=== PATIENT | female | born 1935 | race Caucasian/White ===

== ENCOUNTER 2019-12-13 15:41 | Emergency (ER) | payer MEDICARE, SELFPAY ==
--- NOTE | ~2019-12-13 | XR_ITS ---
XR finger 3rd RT min 2V 12/13/2019 16:09 Indication: Status post fall downstairs. Pain and redness right third finger. Procedure: 4 views right third finger Comparison: No prior studies for comparison. Findings: There is moderate polyarticular osteoarthritis. Loose bodies in noted adjacent to the inter phalangeal joints. Osteopenia. No foreign bodies. Impression: 1: No acute fracture. 2: Moderate polyarticular osteoarthritis. Reviewed, dictated and finalized at location A. RESS STUFFER Impression: 1: No acute fracture. 2: Moderate polyarticular osteoarthritis.
[2019-12-13 15:49] VITALS: BP 137/61; PULSE 62; RESP 20; TEMP 36.5; O2SAT 99
--- NOTE | 2019-12-13 16:17 | ED.GENADULT ---
HPI - General Adult General Chief complaint: Extremity Injury, Upper Stated complaint: FALL/INJURED FINGER Time Seen by Provider: 12/13/19 16:18 Source: patient and RN notes reviewed Mode of arrival: ambulatory Limitations: no limitations History of Present Illness HPI narrative: 84-year-old female presents with complaints of RT middle (3rd) finger pain, bruising, and swelling for 1 day. No treatment. Callie says she was walking into an office building and foot gave away and she fell. Denies hitting head or loss of consciousness. Denies numbness or tingling. No weakness of finger(s). Denies fever or chills. Denies immobility. Exacerbation is movement and palpation of finger. Relieving factor is rest. Dominant hand is RIGHT HAND. Denies break in skin or drainage. Denies abdominal pain, decrease appetite, nausea, or vomiting. Some parts of this dictation were generated by voice recognition software and may contain typographical and/or grammatical inaccuracies. Related Data Home Medications Medication Instructions Recorded Confirmed Calcium 500 + D 12/13/19 Colace 12/13/19 amlodipine 5 mg PO DAILY 12/13/19 12/13/19 aspirin [Aspir-81] 81 mg PO DAILY 12/13/19 12/13/19 atorvastatin 20 mg PO DAILY 12/13/19 12/13/19 fish oil-E-fatty acid5-[id number] cap PO 12/13/19 [Flax, Fish and Borage Oil] ibuprofen 12/13/19 irbesartan [Avapro] 300 mg PO DAILY 12/13/19 12/13/19 isosorbide mononitrate 30 mg PO DAILY 12/13/19 12/13/19 levothyroxine [Levoxyl] 50 mcg PO DAILY 12/13/19 12/13/19 metformin 500 mg PO BID 12/13/19 12/13/19 tl-wx-WO-vit [id number]-mzo-coQ10 cap PO 12/13/19 [Daily Multivitamin] sertraline 50 mg PO DAILY 12/13/19 12/13/19 vitamin B complex [B tablet 12/13/19 Complex-Vitamin B12] Allergies Allergy/AdvReac Type Severity Reaction Status Date / Time No Known Allergies Allergy Verified 12/13/19 15:56 Review of Systems Review of Systems: Narrative: CONSTITUTIONAL: Denies fever, chills, sweats. EYES: Denies visual changes, redness, discharge. ENT: Denies rhinorrhea, congestion, sore throat, otalgia. CARDIOVASCULAR: Denies chest pain, palpitations, edema. RESPIRATORY: Denies dyspnea, wheezing, cough. GASTROINTESTINAL: Denies abdominal pain, nausea, vomiting, diarrhea. GENITOURINARY: Denies dysuria, hematuria, abnormal discharge. SKIN: Denies rash or itching. MUSCULOSKELETAL: Denies acute back pain or myalgia. Complains of RT middle (3rd) finger with swelling, bruising, and tenderness. NEUROLOGIC: Denies numbness or focal weakness. PSYCHIATRIC: Denies anxiety or depression. All systems reviewed & are unremarkable except as noted in HPI and below. [facility] Past Medical History Medical History (Updated 12/13/19 @ 16:37 by UNRULY Villegas) Depression Diabetes Hypercholesteremia Hypertension Hypothyroidism Surgical History Surgical History (Updated 12/13/19 @ 16:37 by UNRULY Villegas) History of bunionectomy Bilateral History of heart bypass surgery History of hysterectomy Family History Family History (Updated 12/13/19 @ 16:37 by UNRULY Villegas) Father Heart disease Social History Social History (Updated 12/13/19 @ 16:37 by UNRULY Villegas) Smoking status: Never smoker Second hand tobacco smoke exposure: No Alcohol intake: never Substance use: never Living arrangements: with family Additional living arrangements comments: Occupation/Education: retired Gender identity (if verbalized by the patient): Female Comments At time of signature, agree with nurse past medical, surgical, social, and family history. There is no relevant family history pertinent to the presenting complaint. Exam Narrative: Exam Narrative: GENERAL: This is a well-nourished, well-developed patient, in no apparent distress. HEAD: normocephalic, atraumatic. EYES: PERRL. Sclera clear/white. Vision is grossly intact. CARD[facility]OVA
== END 2019-12-13 16:36 | disposition home or self-care (01) ==
PROVIDERS: Emergency Provider Nurse Practitioner Family
DX: S63.632A Sprain of interphalangeal joint of right middle finger, initial encounter (principal); W19.XXXA Unspecified fall, initial encounter; F32.9 Major depressive disorder, single episode, unspecified; E11.9 Type 2 diabetes mellitus without complications; E78.00 Pure hypercholesterolemia, unspecified; I10 Essential (primary) hypertension; E03.9 Hypothyroidism, unspecified; Z95.1 Presence of aortocoronary bypass graft; Z79.84 Long term (current) use of oral hypoglycemic drugs
CPT/HCPCS: 29130; 73140; 99203; G0463

== ENCOUNTER 2022-09-24 14:23 | Outpatient (CLI) | payer MEDICARE, SELFPAY ==
--- NOTE | ~2022-09-24 | XR_ITS ---
EXAMINATION: XR chest 2V Exam Date/Time: 09/24/2022 14:42 VASCULAR SURGEON HISTORY: COUGH, HX OF TRIPLE BYPASS Comparison: None available. RESULT: Lines, tubes, and devices: Intact sternotomy wires. Mediastinal surgical clips.. Lungs and pleura: Senescent change and possibly emphysematous. Bibasilar atelectasis/scar. Calcified pulmonary granulomas. Cardiomediastinal silhouette: Aortic arch calcification. Other: No acute osseous or upper abdominal finding. Degenerative change in the left shoulder and spi ne. Abdominal aortic calcification. No evident aneurysm. IMPRESSION: No acute cardiopulmonary process. Reviewed, dictated and finalized at location K. ULAR SURGEON
== END 2022-09-24 14:24 | disposition home or self-care (01) ==
DX: R05.9 Cough, unspecified (principal); R06.09 Other forms of dyspnea; R09.3 Abnormal sputum
CPT/HCPCS: 71046

== ENCOUNTER 2023-02-15 11:47 | Outpatient (CLI) | payer MEDICARE, SELFPAY | END 2023-02-15 11:48 | disposition home or self-care (01) | LOC: ANHAUDIO 11:48 | PROVIDERS: Visit Provider Otolaryngology | DX: H90.3 Sensorineural hearing loss, bilateral (principal) | CPT/HCPCS: 92557; 92567 ==

== ENCOUNTER 2023-09-04 17:17 | Inpatient (IN) | payer MEDICARE, SELFPAY ==
[2023-09-04] VITALS (38 sets, daily range): BP systolic 122–237; BP diastolic 79–111; PULSE 66–84; RESP 13–22; TEMP 36.2–37.7; O2SAT 89–100; BMI 22.6; BMI 20.8
--- NOTE | ~2023-09-04 | CT_ITS ---
. EXAMINATION: CT brain wo con DATE: 09/05/2023 14:16 INDICATION: Change in neurological status TECHNIQUE: Computed tomography (CT) of the head was performed without intravenous contrast. The mA wa s adjusted according to patient size. Iterative reconstruction technique was employed. Exam dose: 60 5.33 mGy-cm total exam DLP. COMPARISON: 11/02/2015 CT brain FINDINGS: There is nonspecific diminished attenuation of the cerebral white matter, likely due to chr onic small vessel ischemic change. Prominent bilateral carotid siphon internal carotid artery calcifi cations are noted. No intracranial mass lesion or hemorrhage or cerebrovascular accident, midline shift or mass effect i s detected. No subdural or epidural hematoma is noted. The mastoid air cells and paranasal sinuses are normally developed and aerated with the exception of minimal focal soft tissue thickening of the anterior ethmoids bilaterally. Bilateral hyperostosis frontalis interna. No skull fracture or bone destruction. IMPRESSION: Cerebral atherosclerosis and chronic small vessel ischemic changes of the cerebral white matter Reviewed, dictated and finalized at Location A. Reviewed, dictated and finalized at location L. DREN'S MINISTRY DIRECTOR
--- NOTE | ~2023-09-04 | CT_ITS ---
EXAMINATION: CT brain wo con DATE: 09/08/2023 16:32 INDICATION: Altered mental state TECHNIQUE: Computed tomography (CT) of the head was performed without intravenous contrast. The mA wa s adjusted according to patient size. Iterative reconstruction technique was employed. Exam dose: 60 5.33 mGy-cm total exam DLP. COMPARISON: 09/05/2023 CT brain FINDINGS: Moderate cerebral and cerebellar volume loss consistent with patient chronological age. Cerebral atherosclerosis and chronic small vessel ischemic changes of the cerebral white matter again noted. No intracranial mass lesion or hemorrhage or recent cerebrovascular accident is evident. No midline s hift or mass effect. No subdural or epidural hematoma is detected. The orbital contents are unremarkable. Mild soft tissue thickening of the ethmoids anteriorly. The paranasal sinuses and mastoid air cells a re otherwise unremarkable. No fracture or bone destruction of the cranial vault. Bilateral hyperostosis frontalis interna, not l ikely of clinical significance. IMPRESSION: No acute intracranial finding or significant change since 09/05/2023 Reviewed, dictated and finalized at Location A. Reviewed, dictated and finalized at location B. ECTOR SALVAGE IMPRESSION: No acute intracranial finding or significant change since 09/05/20 23
--- NOTE | ~2023-09-04 | US_ITS ---
EXAMINATION: US renal BI DATE: 09/05/2023 09:46 INDICATION: Worsening kidney failure. TECHNIQUE: Multiple ultrasound grayscale images of the kidneys were obtained. COMPARISON: None. FINDINGS: The right kidney measures 9.2 x 4.4 x 4.8 cm. The left kidney measures 9.0 x 4.8 x 4.5 cm. The kidney s demonstrate normal parenchymal echogenicity. There are cysts in right kidney measuring up to 2.0 cm . There is no hydronephrosis. The bladder is normal. IMPRESSION: 1. Normal kidney sizes. No hydronephrosis. Reviewed, dictated and finalized at location A. GUIDE
[2023-09-04] MEDS: SODIUM CHLORIDE 0.9% IV 1,000 ML 999 ML IV CONT (17:46)
[2023-09-04 18:20] LABS: Basophils Percent Auto 0.3 % (0.2-1.2); Eosinophils Absolute Auto 0.1 K/mm3 (0-0.3); Hematocrit 37.5 % (37.0-47.0); Hemoglobin 12.1 g/dL (12.0-15.0); Immature Granulocyte Absolute 0.04 K/mm3 (0.00-0.031); Immature Granulocyte Percent A 0.4 % (0-0.5); Lymphocytes Absolute Auto 1.16 K/mm3 (0.9-3.2); Lymphocytes Percent Auto 12.6 % (18.3-44.2); Mean Corpuscular HGB Conc 32.3 g/dl (32-36); Mean Corpuscular Volume 93.1 fl (80-100); Mean Platelet Volume 10.2 fl (7.4-10.4); Monocytes Absolute Auto 0.6 K/mm3 (0.1-0.6); Monocytes Percent Auto 6.7 % (2.6-8.5); Neutrophils Absolute Auto 7.3 K/mm3 (1.3-6.7); Platelet Count Result 199 k/mm3 (150-375); Red Blood Count 4.03 M/mm3 (4.2-5.4); White Blood Count 9.2 K/mm3 (4.5-10.0)
[2023-09-04 18:21] LABS: Appearance Urine Clear (Clear); Bilirubin Urine Negative (Negative); Blood Urine Negative (Negative); Color Urine Yellow (Yellow); Glucose Urine UA Negative (Negative); Ketones Urine Negative (Negative); Leukocyte Esterase Ur Negative LEU/UL (Negative); Nitrate Urine Negative (Negative); Protein Urine Negative (Negative); Specific Grav Ur 1.013 (1.001-1.035); Urobilinogen Urine 0.2 mg/dL (<2.0); pH Urine 5.5 (5.0-9.0)
[2023-09-04 18:31] LABS: Alanine Aminotransferase 18 U/L (6-35); Albumin Level 4.5 g/dL (3.5-5.1); Alkaline Phosphatase 78 U/L (38-126); Anion Gap 15 mmol/L (8-16); Aspartate Amino Transferase 19 U/L (14-36); Bilirubin,Total 0.5 mg/dL (0.2-1.3); Blood Urea Nitrogen 53 mg/dL (7-17); Calcium 10.7 mg/dL (8.4-10.2); Carbon Dioxide 17 mmol/L (22-30); Chloride 102 mmol/L (98-107); Estimated CRCL calculation 13 ml/min; Estimated Glomerular Filt Rate 20; Glucose 105 mg/dL (65-110); Potassium 5.9 mmol/L (3.4-5.0); Sodium 134 mmol/L (137-145)
[2023-09-04 18:34] LABS: Add Urine Microscopic? NO
--- NOTE | 2023-09-04 18:35 | ED.GENADULT ---
HPI - General Adult General Chief complaint: Recheck/Abnormal Lab/Rx Stated complaint: abnormal labs Time Seen by Provider: 09/04/23 17:24 History of Present Illness HPI narrative: Patient is an 88-year-old female who was sent in from her facility for renal failure and hyperkalemia. Outpatient labs show troponin trending up as well as her potassium. Patient is demented and cannot provide history. She denies being in pain. No report of poor oral intake. Patient is a DNR according to paperwork Related Data Home Medications Medication Instructions Recorded Confirmed Calcium 500 + D 12/13/19 01/19/23 Colace 12/13/19 01/19/23 amlodipine 5 mg tablet 5 mg PO DAILY 12/13/19 01/19/23 aspirin 81 mg tablet,delayed 81 mg PO DAILY 12/13/19 01/19/23 release (Aspir-) atorvastatin 20 mg tablet 20 mg PO DAILY 12/13/19 01/19/23 ibuprofen 12/13/19 01/19/23 irbesartan 300 mg tablet (Avapro) 300 mg PO DAILY 12/13/19 01/19/23 isosorbide mononitrate 30 mg 30 mg PO DAILY 12/13/19 01/19/23 tablet,extended release 24 hr levothyroxine 50 mcg tablet 50 mcg PO DAILY 12/13/19 01/19/23 (Levoxyl) metformin 500 mg tablet 500 mg PO BID 12/13/19 01/19/23 [id number]-yzi-XH 200 mcg-vit K 100 cap PO 12/13/19 01/19/23 mcg-lycop 500 [id number] capsule (Daily Multivitamin) sertraline 50 mg tablet 50 mg PO DAILY 12/13/19 01/19/23 vitamin B complex (B tablet 12/13/19 01/19/23 Complex-Vitamin B12 tablet) alendronate 70 mg tablet 70 mg PO WEEKLY 01/19/23 01/19/23 biotin 5,000 mcg sublingual tablet 5,000 mcg sublingual DAILY 01/19/23 01/19/23 wheat dextrin 3 gram/3.5 gram oral 1 packet PO DAILY 01/19/23 01/19/23 powder Allergies Allergy/AdvReac Type Severity Reaction Status Date / Time No Known Allergies Allergy Verified 09/04/23 18:03 Review of Systems Review of Systems: ROS unobtainable: Yes unobtainable due to mental status [facility] Past Medical History Medical History (Updated 09/04/23 @ 18:42 by Carson Stuart MD) CAD (coronary artery disease) Dementia Depression Diabetes Hypercholesteremia Hypertension Hypothyroidism Surgical History Surgical History (Updated 12/13/19 @ 16:37 by UNRULY Villegas) History of bunionectomy Bilateral History of heart bypass surgery History of hysterectomy Family History Family History (Updated 01/19/23 @ 14:15 by Heidi Graf Megan) Father Heart disease Hypertension Cerebrovascular accident Mother Diabetes mellitus Hypertension Heart disease Sibling Diabetes mellitus Heart disease Cerebrovascular accident Social History Social History (Updated 01/19/23 @ 14:20 by JOHN Bishop) Smoking status: Never smoker Second hand tobacco smoke exposure: No Alcohol intake: never Substance use: never Lack of Transportation: No Lack of Food: Never True Current Housing: I Have Housing Concerned About Future Housing: No Difficulty Paying Gas/Electric Bills: No Difficulty Paying for Meds: No Currently Unemployed: No Education: High School Diploma/GED Difficulty w/ Childcare or Family Care: No Living arrangements: alone Additional living arrangements comments: Occupation/Education: retired Gender identity (if verbalized by the patient): Female Exam Narrative: GENERAL: Frail-appearing, thin, and in no acute distress. HEAD: Normocephalic, atraumatic. ENT: Mucous membranes moist. CHEST: Clear to auscultation. No respiratory distress. HEART: Regular rate and rhythm. Normal peripheral pulses. ABDOMEN: Soft, nontender, nondistended. EXTREMITIES: Normal range of motion. No edema. SKIN: Warm, dry, no rash. NEURO: Alert and oriented x1. PSYCH: Normal mood and affect. Course Course Emergency Course: Admit for observation. Patient given a liter of fluid will be started on a continuous drip. Elevated BUN in relation to creatinine, likely prerenal. Vital Signs Vital signs: Vital Signs
--- NOTE | 2023-09-04 18:42 | ECG_ITS ---
Measurements Intervals Many Rate: 81 P: W[place]: 0 QRS: -59 QRSD: 119 T: 35 QT: 370 QTc: 430 Interpretive Statements SINUS RHYTHM WITH SINUS ARRHYTHMIA ATRIAL PREMATURE COMPLEXES RIGHT BUNDLE BRANCH BLOCK LEFT ANTERIOR FASCICULAR BLOCK CANNOT RULE OUT SEPTAL INFARCT, AGE INDETERMINATE BASELINE ARTIFACT- I, II, III, AVR, AVF, V2 ABNORMAL ECG NO PREVIOUS ECG AVAILABLE FOR COMPARISON Electronically Signed On 09-04-2023 19:22:58 RN ORTHO by Duc Silvestre D.O.
--- NOTE | 2023-09-04 20:54 | ADMGEN ---
This patient, Callie Peñaloza, was admitted to Virtual Bed 3rd Floor-1 at 2018. Patient/family oriented to hospital policies and general routines including ID bracelet, bed and alarms, visiting hours, pain management, procedures, bathroom and other care routines, personal items, smoking policy, room service/diet, and visiting hours. Information on how to activate the Rapid Response Team has been discussed. Patient/Family are encouraged to report perceived risks to care and to ask questions if they do not understand what they are told or what they should do.
[2023-09-04] MEDS: SODIUM CHLORIDE 0.9% IV 1,000 ML 125 ML IV CONT (21:21)
--- NOTE | 2023-09-04 21:29 | PM.IMHP ---
H&P: HPI History of Present Illness Date/Time: 09/04/23 19:00 Chief Complaint: Abnormal labs. Narrative: This is a pleasant 88-year-old female with dementia, hypertension, hyperlipidemia, hypothyroidism, type 2 diabetes mellitus, chronic kidney disease, and coronary artery disease who presented to the emergency department via EMS from [place] for evaluation of abnormal labs. The patient is a poor historian due to her dementia and her son provides the majority of the following history. She typically gets her care at [facility] and there are no recent labs in our system however some paperwork did accompany the patient. It looks like she does have chronic kidney disease and her BUN and creatinine were 29 and 1.8 on labs obtained on 08/08/2023. She has had 3 subsequent lab draws since that time with increasing BUN, creatinine, and potassium levels. She was sent in today for evaluation after she was found to have a creatinine of 2.2 and a potassium of 5.8. Son believes that she has been eating and drinking though he goes on to say that at baseline she does not seem to stay as hydrated as she should. Her blood pressures have been increasingly difficult to control as of late but it does not look as though she has been started on any new medications. Labs done on arrival to the ED today were significant for sodium of 134, potassium 5.9, chloride 102, carbon dioxide 17, BUN 53, creatinine 2.30, calcium 10.7. Blood pressures have been as high as 228/101 but have improved with IV hydralazine 10 mg x 1. She received a L of normal saline in the ED and she is being admitted in this setting for close monitoring and nephrology consultation. The patient herself has no complaints and she specifically denies headache, lightheadedness, dizziness, fever, cold and flu symptoms, chest pain, shortness a breath, abdominal pain, nausea, vomiting, diarrhea, and dysuria. Review of Systems Review of Systems: Review of systems is difficult to obtain given her dementia and questionable accuracy. She has not had any recent illnesses according to the son. [facility] Past Medical History Medical History (Updated 09/04/23 @ 21:41 by Selma Jamil PA-C) Coronary artery disease Dementia Depression Hypercholesteremia Hypertension Hypothyroidism Type 2 diabetes mellitus Surgical History Surgical History (Updated 09/04/23 @ 21:41 by Selma Jamil PA-C) History of bunionectomy of both great toes History of heart bypass surgery History of hysterectomy Family History Family History Father Heart disease Hypertension Cerebrovascular accident Mother Diabetes mellitus Hypertension Heart disease Sibling Diabetes mellitus Heart disease Cerebrovascular accident Social History Social History (Updated 09/04/23 @ 21:38 by Selma Jamil PA-C) Social History: Healthcare power of attorney lawyer: Todd Raymundo Anabela CummingsNoelle, son. Code status: Do not resuscitate. Smoking status: Never smoker Second hand tobacco smoke exposure: No Alcohol intake: never Substance use: never Lack of Transportation: No Lack of Food: Never True Current Housing: I Have Housing Concerned About Future Housing: No Difficulty Paying Gas/Electric Bills: No Difficulty Paying for Meds: No Currently Unemployed: No Education: High School Diploma/GED Difficulty w/ Childcare or Family Care: No Living arrangements: group home Additional living arrangements comments: [place]. Occupation/Education: retired Spiritual care concerns: No Meds Home Medications and Allergies Home Medications Medication Instructions Recorded Confirmed Type Calcium 500 + D 12/13/19 01/19/23 History amlodipine 5 mg tablet 5 mg PO DAILY 12/13/19 01/19/23 History aspirin 81 mg tablet,delayed 81 mg PO DAILY 12/13/19 09/04/23 History release (Aspir-) atorvastatin 20 mg tablet
[2023-09-04 21:58] LABS: Glucose Point of Care 130 mg/dl (65-105)
[2023-09-04] MEDS: hydrALAZINE HCL 20 MG/ML VIAL 5 MG IV PUSH (22:08)
[2023-09-04] MEDS: SODIUM BICARBONATE 8.4% 50 MEQ/50 ML SYRINGE 58 MEQ IV PUSH (22:23)
[2023-09-04 23:01] LABS: Anion Gap 17 mmol/L (8-16); Blood Urea Nitrogen 50 mg/dL (7-17); CRP 3.2 mg/dL (<1.0); Calcium 10.2 mg/dL (8.4-10.2); Carbon Dioxide 17 mmol/L (22-30); Chloride 102 mmol/L (98-107); Estimated CRCL calculation 15 ml/min; Estimated Glomerular Filt Rate 24; Glucose 118 mg/dL (65-110); Magnesium 1.6 mg/dL (1.6-2.3); Phosphorus 3.7 mg/dL (2.5-4.5); Potassium 5.2 mmol/L (3.4-5.0); Sodium 136 mmol/L (137-145)
[2023-09-04 23:09] LABS: Creatine Kinase < 20 U/L (30-135)
[2023-09-04 23:24] LABS: Hemoglobin A1C 5.9 % (<5.7)
[2023-09-04] MEDS: ACETAMINOPHEN 325 MG TABLET 650 MG PO (23:28)
[2023-09-04 23:49] LABS: Thyroid Stimulating Hormone Reflex 0.198 uIU/mL (0.465-4.68)
[2023-09-05] VITALS (13 sets, daily range): BP systolic 140–194; BP diastolic 71–89; PULSE 65–93; RESP 16; TEMP 36.3–37.1; O2SAT 95–100
[2023-09-05 00:10] LABS: Influenza A QL RT-PCR Negative (Negative); Influenza B QL RT-PCR Negative (Negative); SARS-CoV-2 RNA PCR Negative (Negative)
[2023-09-05 00:37] LABS: Free T4 Free Thyroxine Reflex 1.79 ng/dL (0.78-2.19)
[2023-09-05] MEDS: hydrALAZINE HCL 20 MG/ML VIAL 5 MG IV PUSH ×2 (01:36→21:46)
[2023-09-05 01:55] LABS: Total Triiodothyronine (T3) 0.74 NG/ML (0.97-1.69)
--- NOTE | 2023-09-05 02:45 | PC.NURSE ---
Pt transferred to floor at 2018 on 09/04/23 along with 2 sons. Pt BP elevated while in ED. Upon arriving on floor, pt BP 188/90. Pt orientation of A&O x1-2 (baseline). Pt was states needing to urinate. Pt was assisted to restroom with GB and walker. Pt states she is having a BM, within minutes pt become unresponsive on the toilet. Pt was transferred to bed using wheelchair. Pt vitals obtained; BP 237/90, temp WNL, HR WNL, respirations WNL, O2 WNL. MD on unit and assessed the pt. Orders were placed. Prior to hydralazine was administered, pt had generalized shivering. Pt states she was cold; warm blankets applied. Temp obtained for the 4th time; temporal temp 99.9, acetaminophen administered. 30 minutes later; temp re-checked; WNL. Continued monitoring and MD are made aware of any status change. Pt stable at 0320.
[2023-09-05 07:50] LABS: Glucose Point of Care 188 mg/dl (65-105)
[2023-09-05 07:56] LABS: Hematocrit 37.7 % (37.0-47.0); Hemoglobin 12.1 g/dL (12.0-15.0); Mean Corpuscular HGB Conc 32.1 g/dl (32-36); Mean Corpuscular Volume 93.5 fl (80-100); Mean Platelet Volume 10.3 fl (7.4-10.4); Platelet Count Result 185 k/mm3 (150-375); Red Blood Count 4.03 M/mm3 (4.2-5.4); White Blood Count 7.1 K/mm3 (4.5-10.0)
[2023-09-05 08:05] LABS: Hemoglobin A1C 5.9 % (<5.7)
[2023-09-05 08:07] LABS: Anion Gap 17 mmol/L (8-16); Blood Urea Nitrogen 41 mg/dL (7-17); Calcium 10.3 mg/dL (8.4-10.2); Carbon Dioxide 19 mmol/L (22-30); Chloride 100 mmol/L (98-107); Estimated CRCL calculation 19 ml/min; Estimated Glomerular Filt Rate 30; Glucose 168 mg/dL (65-110); Potassium 4.2 mmol/L (3.4-5.0); Sodium 136 mmol/L (137-145)
[2023-09-05] MEDS: SODIUM CHLORIDE 0.9% IV 1,000 ML 75 ML IV CONT (11:21)
[2023-09-05 12:22] LABS: Glucose Point of Care 192 mg/dl (65-105)
--- NOTE | 2023-09-05 14:09 | PM.IMPN ---
Progress Note: A&P Assessment and Plan (1) Acute on chronic kidney failure: Code(s): N17.9 - Acute kidney failure, unspecified; N18.9 - Chronic kidney disease, unspecified Status: Acute Assessment and Plan: Creatinine was 1.80 will less than a month ago, 2.30 on admission and now 1.7 waiting on faxed labs from [facility] to determine her baseline kidney function BUN, EGFR improving on fluids but still at 41, 30 respectively hydralazine ordered to help keep her blood pressure under control Renal US shows no abnormalities Hold nephrotoxic agents including ibuprofen and Irbesartan Nephrology consulted (2) Alteration in neurological status: Code(s): R29.90 - Unspecified symptoms and signs involving the nervous system Status: Acute Assessment and Plan: Could be due to worsening kidney function Not at patient baseline per family CT scan of brain W/O contrast ordered, recent fall with bruising evidence EEG ordered to rule out subclinical seizures May consult neurology if appropriate (3) Hyperkalemia: Code(s): E87.5 - Hyperkalemia Status: Acute Assessment and Plan: elevated on admission, likely due to CKD 4.2 on recheck this am continue to monitor (4) Hypercalcemia: Code(s): E83.52 - Hypercalcemia Status: Resolved Assessment and Plan: resolved with fluids (5) Hypothyroidism: Code(s): E03.9 - Hypothyroidism, unspecified Status: Chronic Assessment and Plan: TSH recheck 0.198, T4 normal T3 low continue home levothyroxine (6) Type 2 diabetes mellitus: Code(s): E11.9 - Type 2 diabetes mellitus without complications Status: Chronic Assessment and Plan: sliding scale insulin, Accu-Cheks, and hypoglycemic protocol holding metformin due to kidney function Subjective Date/time seen: 09/05/23 14:09 Interval history: Patient is a 88 YO female with dementia, hypertension, hyperlipidemia, hypothyroidism, type 2 diabetes mellitus, chronic kidney disease, and coronary artery disease who presented to the emergency department via EMS from [place] for evaluation of abnormal labs. The patient is a poor historian due to her dementia and her son provides the majority of the following history. She typically gets her care at [facility] and there are no recent labs in our system however some paperwork did accompany the patient. It looks like she does have chronic kidney disease and her BUN and creatinine were 29 and 1.8 on labs obtained on 08/08/2023. She has had 3 subsequent lab draws since that time with increasing BUN, creatinine, and potassium levels. She was sent in today for evaluation after she was found to have a creatinine of 2.2 and a potassium of 5.8. Son believes that she has been eating and drinking though he goes on to say that at baseline she does not seem to stay as hydrated as she should. Her blood pressures have been increasingly difficult to control as of late but it does not look as though she has been started on any new medications. She was admitted in this setting for close monitoring and nephrology consultation. Today the patient is not verbal in response. She will open her eyes, but cannot respond to questions when asked. Her sons were at the bedside this afternoon, and discussed her DNR status. They were already looking into in home hospice for her prior to this admission. Apparently, she has had 3 hospital admission within the year and her condition subsequently worsens, but today is not her baseline neuro status. Her son said that she was normally talkative, responsive and would eat and drink with some assistance. They have many questions and called a relative who is also a physician involved in her care, who was very concerned for the decline in her neuro status being so drastic. They want to be quite involved in her plan of care. Encouraged the sons as POA to think about comfort care measu
--- NOTE | 2023-09-05 15:22 | PM.CNNEP ---
Assessment and Plan Assessment and plan (1) TIMI (acute kidney injury): Code(s): N17.9 - Acute kidney failure, unspecified Status: Acute Assessment and Plan: possibly due to volume depletion/poor oral intake in the context on ongoing ARB use improvement noted in renal function with just IVFs evaluation to date: renal ultrasound okay CPK low urine studies pending ARB on hold follow trend of repeat labs (2) Chronic kidney disease, stage IV (severe): Code(s): N18.4 - Chronic kidney disease, stage 4 (severe) Status: Chronic Assessment and Plan: baseline creatinine runs ~ 1.7 - 1.9mg/dl from [facility] records presumably due to HTN, diabetes, vascular disease, and age I wonder if her dementia and fluctuating oral intake causes her creatinine to fluctuate even higher.... (3) Hyperkalemia: Code(s): E87.5 - Hyperkalemia Status: Acute Assessment and Plan: presumably due to volume depletion + ARB therapy resolving with medical management follow trend of K+ (4) Altered mental status: Code(s): R41.82 - Altered mental status, unspecified Status: Acute Assessment and Plan: due to TIMI/ARF? rule out infection worsening of baseline dementia? follow mentation (5) Hypertension: Code(s): I10 - Essential (primary) hypertension Status: Chronic Assessment and Plan: appears difficult to control at baseline off ARB at this time using PRN IV hyralazine with her other oral medications to control follow trend of hemodynamics (6) Type 2 diabetes mellitus: Code(s): E11.9 - Type 2 diabetes mellitus without complications Status: Chronic Assessment and Plan: follow accu-cheks glycemic control per hospitalits. I will continue follow the patient with you while she remains hospitalized and make further recommendations as needed. Thank you for allowing me to participate in the care this patient. History of Present Illness Reason for Consult Consult date: 09/05/23 Reason for consult: acute renal failure (on chronic kidney disease) Chief Complaint Chief complaint: TIMI/Hyperkalemia History of Present Illness Narrative: Most information I have obtained is from review of the electronic medical record as well as discussion with the physician/ nurses involved in the patient's care as I am unable to get much history from the patient given her altered mental status. Her power of keeler polygraph operator who was at bedside during my initial evaluation was able to provide some history as well. The patient is an 88-year-old female with a past medical history as outlined below who presented to [facility] Emergency room from her nursing facility for further evaluation of abnormal labs. The patient apparently gets most of her care at [facility] so there are no recent or old labs to compare to with regard to her baseline status. From the longterm paperwork, she carries a diagnosis of chronic kidney disease with her last labs showing a creatinine of 1.8 mg/dL on August 08, 2023. further testing following that blood work shows a subsequent rise in creatinine up to as high as 2.2 with a potassium of 5.8. furthermore, she apparently has been having issues and problems with blood pressure control as well although I am unclear if any other medication just since have been done prior to her presentation. In any event, given the trend of the abnormal labs as mentioned, she was transferred to the emergency room for further assessment. Workup and evaluation in the emergency room demonstrated patient be quite hypertensive with a systolic BP greater than 200. routine blood tests once again confirmed her elevated BUN and creatinine in association with hyperkalemia with the values of 53, 2.3, and 5.8, respectively. She was given IV hydralazine for her high blood pressure as well as L of normal saline due to concerns for poss
--- NOTE | 2023-09-05 15:22 | P.CONNP_ITS ---
Assessment and Plan Assessment and plan (1) TIMI (acute kidney injury): Code(s): N17.9 - Acute kidney failure, unspecified Status: Acute Assessment and Plan: * possibly due to volume depletion/poor oral intake in the context on ongoing ARB use * improvement noted in renal function with just IVFs * evaluation to date: * renal ultrasound okay * CPK low * urine studies pending * ARB on hold * follow trend of repeat labs (2) Chronic kidney disease, stage IV (severe): Code(s): N18.4 - Chronic kidney disease, stage 4 (severe) Status: Chronic Assessment and Plan: * baseline creatinine runs ~ 1.7 - 1.9mg/dl from [facility] records * presumably due to HTN, diabetes, vascular disease, and age * I wonder if her dementia and fluctuating oral intake causes her creatinine to fluctuate even higher.... (3) Hyperkalemia: Code(s): E87.5 - Hyperkalemia Status: Acute Assessment and Plan: * presumably due to volume depletion + ARB therapy * resolving with medical management * follow trend of K+ (4) Altered mental status: Code(s): R41.82 - Altered mental status, unspecified Status: Acute Assessment and Plan: * due to TIMI/ARF? * rule out infection * worsening of baseline dementia? * follow mentation (5) Hypertension: Code(s): I10 - Essential (primary) hypertension Status: Chronic Assessment and Plan: * appears difficult to control at baseline * off ARB at this time * using PRN IV hyralazine with her other oral medications to control * follow trend of hemodynamics (6) Type 2 diabetes mellitus: Code(s): E11.9 - Type 2 diabetes mellitus without complications Status: Chronic Assessment and Plan: * follow accu-cheks * glycemic control per hospitalits. I will continue follow the patient with you while she remains hospitalized and make further recommendations as needed. Thank you for allowing me to participate in the care this patient. History of Present Illness Reason for Consult Consult date: 09/05/23 Reason for consult: acute renal failure (on chronic kidney disease) Chief Complaint Chief complaint: TIMI/Hyperkalemia History of Present Illness Narrative: Most information I have obtained is from review of the electronic medical record as well as discussion with the physician/ nurses involved in the patient's care as I am unable to get much history from the patient given her altered mental status. Her power of privacy attorney who was at bedside during my initial evaluation was able to provide some history as well. The patient is an 88-year-old female with a past medical history as outlined below who presented to [facility] Emergency room from her nursing facility for further evaluation of abnormal labs. The patient apparently gets most of her care at [facility] so there are no recent or old labs to compare to with regard to her baseline status. From the [facility] paperwork, she carries a diagnosis of chronic kidney disease with her last labs showing a creatinine of 1.8 mg/dL on August 08, 2023. further testing following that blood work shows a subsequent rise in creatinine up to as high as 2.2 with a potassium of 5.8. furthermore, she apparently has been having issues and problems with blood pressure control as well although I am unclear if any other medication just since have been done prior to her presentation. In any event, given the trend of the abnormal labs as mentioned, she was transferred to the emergency room for further assessment.
--- NOTE | 2023-09-05 15:46 | PCCCNOTE ---
On 09/05/23, the student, [Della Lombardi], provided care and completed [facility] documentation on this patient. I have reviewed the student's documentation and agree with the findings.
[2023-09-05 16:10] LABS: Glucose Point of Care 133 mg/dl (65-105)
[2023-09-06] VITALS (11 sets, daily range): BP systolic 127–195; BP diastolic 63–88; PULSE 72–87; RESP 16–20; TEMP 36.2–36.9; O2SAT 95–96
[2023-09-06 00:17] LABS: Glucose Point of Care 116 mg/dl (65-105)
[2023-09-06 05:31] LABS: Alveolar/Arterial O2 Gradient 43.7 mmHg; Base Excess ABG -2.9 mEq/l (+/-2.0); Fractional Inspired Oxygen 21 %; Oxygen Content ABG 15.7 %vol (16.0-22.0); Oxygen Saturation ABG 96.3 % (95.0-100.0); Oxyhemoglobin 94.2 % THb (90.0-100.0); PCO2 ABG 25.5 mmHg (35.0-45.0); PO2 ABG 75.5 mmHg (80.0-100.0); Total Hemoglobin 11.8 g/dL (12.0-18.0); pH ABG 7.491 (7.350-7.450)
[2023-09-06 05:32] LABS: Device ROOM AIR; Modified Allen's Test Pass; Site Drawn RIGHT RADIAL
[2023-09-06] MEDS: hydrALAZINE HCL 20 MG/ML VIAL 5 MG IV PUSH (06:08)
[2023-09-06 06:57] LABS: Hematocrit 33.3 % (37.0-47.0); Mean Corpuscular Hemoglobin 29.7 pg (26-34); Mean Platelet Volume 10.3 fl (7.4-10.4); Platelet Count Result 180 k/mm3 (150-375); White Blood Count 5.8 K/mm3 (4.5-10.0)
[2023-09-06 07:03] LABS: Anion Gap 13 mmol/L (8-16); Blood Urea Nitrogen 34 mg/dL (7-17); Calcium 9.8 mg/dL (8.4-10.2); Carbon Dioxide 18 mmol/L (22-30); Chloride 105 mmol/L (98-107); Estimated CRCL calculation 21 ml/min; Estimated Glomerular Filt Rate 35; Glucose 122 mg/dL (65-110); Potassium 3.9 mmol/L (3.4-5.0); Sodium 136 mmol/L (137-145)
[2023-09-06 08:15] LABS: Glucose Point of Care 124 mg/dl (65-105)
--- NOTE | 2023-09-06 08:50 | P.PNIM_ITS ---
Progress Note: A&P Assessment and Plan (1) Acute on chronic kidney failure: Code(s): N17.9 - Acute kidney failure, unspecified; N18.9 - Chronic kidney disease, unspecified Status: Acute Assessment and Plan: 09/05/23:(copied from chart) * Creatinine was 1.80 will less than a month ago, 2.30 on admission and now 1.7 * waiting on faxed labs from [facility] to determine her baseline kidney function * BUN, EGFR improving on fluids but still at 41, 30 respectively * hydralazine ordered to help keep her blood pressure under control * Renal US shows no abnormalities * Hold nephrotoxic agents including ibuprofen and Irbesartan * Nephrology consulted 09/06/23: * BUN 34, creatinine 1.4, EGFR 35, creatinine clearance 21, potassium 3.9, sodium level 136 * Nephrology consulted and following * Renal ultrasound showing normal kidney size, no hydronephrosis * Continue amlodipine 5 mg and Imdur 30 mg for blood pressure control * Will continue to hold irbesartan and allopurinol (2) Alteration in neurological status: Code(s): R29.90 - Unspecified symptoms and signs involving the nervous system Status: Acute Assessment and Plan: 09/05/23:(copied from chart) * Could be due to worsening kidney function * Not at patient baseline per family * CT scan of brain W/O contrast ordered, recent fall with bruising evidence * EEG ordered to rule out subclinical seizures * May consult neurology if appropriate 09/06/23: * EEG results pending * CT of the brain without contrast negative for any acute changes, showed age- related changes only * Patient is alert and oriented x3 today, interactive, following commands, EOMs intact, PERRLA, strength 5/5 in all 4 extremities, cranial nerves intact, denies any decreased sensation. * Kidney function improved today BUN 34, creatinine 1.40, estimated GFR 35, potassium 3.9, sodium 136 * Continue to monitor daily labs (3) Hyperkalemia: Code(s): E87.5 - Hyperkalemia Status: Acute Assessment and Plan: 09/05/23:(copied from chart) * elevated on admission, likely due to CKD * 4.2 on recheck this am * continue to monitor 09/06/23: * Potassium today 3.9 * Continue to monitor daily labs (4) Hypothyroidism: Code(s): E03.9 - Hypothyroidism, unspecified Status: Chronic Assessment and Plan: 09/05/23:(copied from chart) * TSH recheck 0.198, T4 normal * T3 low * continue home levothyroxine 09/06/23: * No change to current treatment plan (5) Type 2 diabetes mellitus: Code(s): E11.9 - Type 2 diabetes mellitus without complications Status: Chronic Assessment and Plan: 09/05/23:(copied from chart) * sliding scale insulin, Accu-Cheks, and hypoglycemic protocol * holding metformin due to kidney function 09/06/23: * No change to current treatment plan Time Spent With Patient Time with patient: Greater than 35 minutes Subjective Date/time seen: 09/06/23 08:50 Interval history: 09/05/23: (copied from chart) Patient is a 88 YO female with dementia, hypertension, hyperlipidemia, hypothyroidism, type 2 diabetes mellitus, chronic kidney disease, and coronary artery disease who presented to the emergency department via EMS from [facility] for evaluation of abnormal labs. The patient is a poor historian due to her dementia and her son provides the majority of the following history. She t ypically gets her care at [facility] and there are no recent labs in our system however some paperwork did accompany the patient. It looks like she does hav
--- NOTE | 2023-09-06 08:50 | PM.IMPN ---
Progress Note: A&P Assessment and Plan (1) Acute on chronic kidney failure: Code(s): N17.9 - Acute kidney failure, unspecified; N18.9 - Chronic kidney disease, unspecified Status: Acute Assessment and Plan: 09/05/23:(copied from chart) Creatinine was 1.80 will less than a month ago, 2.30 on admission and now 1.7 waiting on faxed labs from [facility] to determine her baseline kidney function BUN, EGFR improving on fluids but still at 41, 30 respectively hydralazine ordered to help keep her blood pressure under control Renal US shows no abnormalities Hold nephrotoxic agents including ibuprofen and Irbesartan Nephrology consulted 09/06/23: BUN 34, creatinine 1.4, EGFR 35, creatinine clearance 21, potassium 3.9, sodium level 136 Nephrology consulted and following Renal ultrasound showing normal kidney size, no hydronephrosis Continue amlodipine 5 mg and Imdur 30 mg for blood pressure control Will continue to hold irbesartan and allopurinol (2) Alteration in neurological status: Code(s): R29.90 - Unspecified symptoms and signs involving the nervous system Status: Acute Assessment and Plan: 09/05/23:(copied from chart) Could be due to worsening kidney function Not at patient baseline per family CT scan of brain W/O contrast ordered, recent fall with bruising evidence EEG ordered to rule out subclinical seizures May consult neurology if appropriate 09/06/23: EEG results pending CT of the brain without contrast negative for any acute changes, showed age-related changes only Patient is alert and oriented x3 today, interactive, following commands, EOMs intact, PERRLA, strength 5/5 in all 4 extremities, cranial nerves intact, denies any decreased sensation. Kidney function improved today BUN 34, creatinine 1.40, estimated GFR 35, potassium 3.9, sodium 136 Continue to monitor daily labs (3) Hyperkalemia: Code(s): E87.5 - Hyperkalemia Status: Acute Assessment and Plan: 09/05/23:(copied from chart) elevated on admission, likely due to CKD 4.2 on recheck this am continue to monitor 09/06/23: Potassium today 3.9 Continue to monitor daily labs (4) Hypothyroidism: Code(s): E03.9 - Hypothyroidism, unspecified Status: Chronic Assessment and Plan: 09/05/23:(copied from chart) TSH recheck 0.198, T4 normal T3 low continue home levothyroxine 09/06/23: No change to current treatment plan (5) Type 2 diabetes mellitus: Code(s): E11.9 - Type 2 diabetes mellitus without complications Status: Chronic Assessment and Plan: 09/05/23:(copied from chart) sliding scale insulin, Accu-Cheks, and hypoglycemic protocol holding metformin due to kidney function 09/06/23: No change to current treatment plan Time Spent With Patient Time with patient: Greater than 35 minutes Subjective Date/time seen: 09/06/23 08:50 Interval history: 09/05/23: (copied from chart) Patient is a 88 YO female with dementia, hypertension, hyperlipidemia, hypothyroidism, type 2 diabetes mellitus, chronic kidney disease, and coronary artery disease who presented to the emergency department via EMS from [place] for evaluation of abnormal labs. The patient is a poor historian due to her dementia and her son provides the majority of the following history. She typically gets her care at [facility] and there are no recent labs in our system however some paperwork did accompany the patient. It looks like she does have chronic kidney disease and her BUN and creatinine were 29 and 1.8 on labs obtained on 08/08/2023. She has had 3 subsequent lab draws since that time with increasing BUN, creatinine, and potassium levels. She was sent in today for evaluation after she was found to have a creatinine of 2.2 and a potassium of 5.8. Son believes that she has been eating and drinking though he goes on to say that at baseline she does not seem to stay as h
[2023-09-06 11:21] LABS: Glucose Point of Care 153 mg/dl (65-105)
[2023-09-06] MEDS: SODIUM CHLORIDE 0.9% IV 1,000 ML 75 ML IV CONT ×2 (12:51→20:56)
--- NOTE | 2023-09-06 14:01 | PM.PNNEP ---
Progress Note: A&P Assessment and Plan (1) TIMI (acute kidney injury): Code(s): N17.9 - Acute kidney failure, unspecified Status: Acute Assessment and Plan: possibly due to volume depletion/poor oral intake in the context on ongoing ARB use improvement noted in renal function with just IVFs evaluation to date: renal ultrasound okay CPK low urine electrolytes non-prerenal urine eosinophils negative ARB on hold follow trend of repeat labs (2) Chronic kidney disease, stage IV (severe): Code(s): N18.4 - Chronic kidney disease, stage 4 (severe) Status: Chronic Assessment and Plan: baseline creatinine runs ~ 1.7 - 1.9mg/dl from [facility] records presumably due to HTN, diabetes, vascular disease, and age I wonder if her dementia and fluctuating oral intake causes her creatinine to fluctuate even higher.... creatinine better than baseline currently (3) Hyperkalemia: Code(s): E87.5 - Hyperkalemia Status: Acute Assessment and Plan: resolved presumably due to volume depletion + ARB therapy resolving with medical management follow trend of K+ (4) Altered mental status: Code(s): R41.82 - Altered mental status, unspecified Status: Acute Assessment and Plan: improvement noted due to TIMI/ARF? rule out infection worsening of baseline dementia? follow mentation (5) Hypertension: Code(s): I10 - Essential (primary) hypertension Status: Chronic Assessment and Plan: appears difficult to control at baseline off ARB at this time using PRN IV hyralazine with her other oral medications to control follow trend of hemodynamics (6) Type 2 diabetes mellitus: Code(s): E11.9 - Type 2 diabetes mellitus without complications Status: Chronic Assessment and Plan: follow accu-cheks glycemic control per hospitalits. Will continue to follow. Subjective Date/time seen: 09/06/23 14:01 Interval history: Follow-up for TIMI/ARF on chronic kidney disease. Mentation has significantly improved and renal function appears better than baseline by AM labs; BP running a bit high but otherwise; no apparent distress noted. Exam Narrative: General: elderly female in NAD Heart: normal S1 and S2; no rub Lungs: clear to auscultation Abdomen: soft, nontender, nondistended, positive bowel sounds Extremities: no cyanosis or clubbing; no edema Skin: warm and dry Objective Data Vital Signs Vital Signs: Vital Signs Temp Pulse Resp BP Pulse Ox 09/06/23 14:00 98.5 F 78 20 151/63 H 96 09/06/23 12:00 77 09/06/23 08:00 77 09/06/23 07:00 179/75 H 09/06/23 05:59 97.1 F L 80 20 195/87 H 95 09/06/23 04:00 72 09/06/23 00:45 76 185/88 H 09/05/23 21:40 97.8 F 72 16 194/89 H 95 09/06/23 00:00 74 09/05/23 20:00 77 Intake/Output Intake/Output: Intake & Output 09/03/23 09/04/23 09/05/23 09/06/23 23:59 23:59 23:59 23:59 Intake Total 1000 2100 2600 Output Total 75 Balance 925 2100 2600 Meds/Results Medications: Active Medications Generic Name Dose Route Start Last Admin Trade Name Freq PRN Reason Stop Dose Admin Acetaminophen 650 mg 09/04/23 18:35 09/06/23 14:45 Acetaminophen 325 Mg Tablet PO 650 mg Q4H PRN Administration Mild Pain (1-3) or Fever Amlodipine Besylate 5 mg 09/06/23 14:00 09/06/23 14:02 Amlodipine Besylate 5 Mg Tablet PO 5 mg DAILY YOBANY Administration Ascorbic Acid 500 mg 09/07/23 09:00 Ascorbic Acid 500 Mg Tablet PO DAILY YOBANY Aspirin 81 mg 09/06/23 14:00 09/06/23 14:03 Aspirin 81 Mg Enteric Tablet PO 81 mg DAILY YOBANY Administration Atorvastatin Calcium 20 mg 09/06/23 14:00 09/06/23 14:03 Atorvastatin 20 Mg Tablet PO 20 mg DAILY YOBANY Administration Calcium Carbonate 500 mg 09/07/23 09:00 Calcium/Vitamin D 500 Mg Tablet PO DAILY
--- NOTE | 2023-09-06 14:01 | P.PNNP_ITS ---
Progress Note: A&P Assessment and Plan (1) TIMI (acute kidney injury): Code(s): N17.9 - Acute kidney failure, unspecified Status: Acute Assessment and Plan: * possibly due to volume depletion/poor oral intake in the context on ongoing ARB use * improvement noted in renal function with just IVFs * evaluation to date: * renal ultrasound okay * CPK low * urine electrolytes non-prerenal * urine eosinophils negative * ARB on hold * follow trend of repeat labs (2) Chronic kidney disease, stage IV (severe): Code(s): N18.4 - Chronic kidney disease, stage 4 (severe) Status: Chronic Assessment and Plan: * baseline creatinine runs ~ 1.7 - 1.9mg/dl from [facility] records * presumably due to HTN, diabetes, vascular disease, and age * I wonder if her dementia and fluctuating oral intake causes her creatinine to fluctuate even higher.... * creatinine better than baseline currently (3) Hyperkalemia: Code(s): E87.5 - Hyperkalemia Status: Acute Assessment and Plan: * resolved * presumably due to volume depletion + ARB therapy * resolving with medical management * follow trend of K+ (4) Altered mental status: Code(s): R41.82 - Altered mental status, unspecified Status: Acute Assessment and Plan: * improvement noted * due to TIMI/ARF? * rule out infection * worsening of baseline dementia? * follow mentation (5) Hypertension: Code(s): I10 - Essential (primary) hypertension Status: Chronic Assessment and Plan: * appears difficult to control at baseline * off ARB at this time * using PRN IV hyralazine with her other oral medications to control * follow trend of hemodynamics (6) Type 2 diabetes mellitus: Code(s): E11.9 - Type 2 diabetes mellitus without complications Status: Chronic Assessment and Plan: * follow accu-cheks * glycemic control per hospitalits. Will continue to follow. Subjective Date/time seen: 09/06/23 14:01 Interval history: Follow-up for TIMI/ARF on chronic kidney disease. Mentation has significantly improved and renal function appears better than baseline by AM labs; BP running a bit high but otherwise; no apparent distress noted. Exam Narrative: General: elderly female in NAD Heart: normal S1 and S2; no rub Lungs: clear to auscultation Abdomen: soft, nontender, nondistended, positive bowel sounds Extremities: no cyanosis or clubbing; no edema Skin: warm and dry Objective Data Vital Signs Vital Signs: Vital Signs Temp Pulse Resp BP Pulse Ox 09/06/23 14:00 98.5 F 78 20 151/63 H 96 09/06/23 12:00 77 09/06/23 08:00 77 09/06/23 07:00 179/75 H 09/06/23 05:59 97.1 F L 80 20 195/87 H 95 09/06/23 04:00 72 09/06/23 00:45 76 185/88 H 09/05/23 21:40 97.8 F 72 16 194/89 H 95 09/06/23 00:00 74 09/05/23 20:00 77 Intake/Output Intake/Output: Intake & Output 09/03/23 09/04/23 09/05/23 09/06/23 23:59 23:59 23:59 23:59 Intake Total 1000 2100 2600 Output Total 75 Balance 925 2100 2600 Meds/Results Medications: Active Medi
[2023-09-06] MEDS: amLODIPine BESYLATE 5 MG TABLET PO (14:02)
[2023-09-06] MEDS: ASPIRIN 81 MG ENTERIC TABLET PO (14:03)
[2023-09-06] MEDS: ISOSORBIDE MONONITRATE 30 MG TAB.ER.24H PO (14:03)
[2023-09-06] MEDS: ATORVASTATIN 20 MG TABLET PO (14:03)
[2023-09-06] MEDS: VITAMIN B COMPLEX CAPSULE 1 CAP PO (14:03)
[2023-09-06] MEDS: SERTRALINE HCL 50 MG TABLET PO (14:03)
[2023-09-06] MEDS: ACETAMINOPHEN 325 MG TABLET 650 MG PO (14:45)
--- NOTE | 2023-09-06 14:57 | PCCCNOTE ---
On 09/06/23, the student, [Della Lombardi], provided care and completed [facility] documentation on this patient. I have reviewed the student's documentation and agree with the findings.
[2023-09-06] MEDS: MEGESTROL ACETATE (*CHEMO) ORAL SUSP 40 MG/ML SYR 400 MG PO (16:21)
[2023-09-06 16:31] LABS: Glucose Point of Care 197 mg/dl (65-105)
[2023-09-06 20:43] LABS: Glucose Point of Care 131 mg/dl (65-105)
[2023-09-07] VITALS (9 sets, daily range): BP systolic 140–170; BP diastolic 66–77; PULSE 73–99; RESP 16–20; TEMP 36.7–36.9; O2SAT 98–100
[2023-09-07] MEDS: hydrALAZINE HCL 20 MG/ML VIAL 5 MG IV PUSH (03:05)
[2023-09-07] MEDS: MEGESTROL ACETATE (*CHEMO) ORAL SUSP 40 MG/ML SYR 400 MG PO ×3 (05:26→17:18)
[2023-09-07 07:38] LABS: Glucose Point of Care 127 mg/dl (65-105)
[2023-09-07 08:31] LABS: Basophils Percent Auto 0.4 % (0.2-1.2); Eosinophils Absolute Auto 0.2 K/mm3 (0-0.3); Eosinophils Percent Auto 2.2 % (0-4.4); Hematocrit 35.1 % (37.0-47.0); Hemoglobin 11.3 g/dL (12.0-15.0); Immature Granulocyte Absolute 0.03 K/mm3 (0.00-0.031); Immature Granulocyte Percent A 0.4 % (0-0.5); Lymphocytes Absolute Auto 1.18 K/mm3 (0.9-3.2); Lymphocytes Percent Auto 15.2 % (18.3-44.2); Mean Corpuscular HGB Conc 32.2 g/dl (32-36); Mean Corpuscular Hemoglobin 29.9 pg (26-34); Mean Corpuscular Volume 92.9 fl (80-100); Mean Platelet Volume 10.1 fl (7.4-10.4); Monocytes Absolute Auto 0.6 K/mm3 (0.1-0.6); Monocytes Percent Auto 8.2 % (2.6-8.5); Neutrophils Absolute Auto 5.7 K/mm3 (1.3-6.7); Neutrophils Percent Auto 73.6 % (45.5-73.1); Platelet Count Result 181 k/mm3 (150-375); Red Blood Count 3.78 M/mm3 (4.2-5.4); Red Cell Distribution Width 14.2 % (11.5-14.5); White Blood Count 7.8 K/mm3 (4.5-10.0)
[2023-09-07 08:47] LABS: Alanine Aminotransferase 29 U/L (6-35); Albumin Level 4.2 g/dL (3.5-5.1); Alkaline Phosphatase 70 U/L (38-126); Anion Gap 14 mmol/L (8-16); Aspartate Amino Transferase 28 U/L (14-36); Bilirubin,Total 0.5 mg/dL (0.2-1.3); Blood Urea Nitrogen 35 mg/dL (7-17); Calcium 9.8 mg/dL (8.4-10.2); Carbon Dioxide 17 mmol/L (22-30); Chloride 105 mmol/L (98-107); Estimated CRCL calculation 21 ml/min; Estimated Glomerular Filt Rate 33; Glucose 122 mg/dL (65-110); Potassium 3.8 mmol/L (3.4-5.0); Sodium 136 mmol/L (137-145)
--- NOTE | 2023-09-07 08:49 | P.PNIM_ITS ---
Progress Note: A&P Assessment and Plan (1) Acute on chronic kidney failure: Code(s): N17.9 - Acute kidney failure, unspecified; N18.9 - Chronic kidney disease, unspecified Status: Acute Assessment and Plan: 09/05/23:(copied from chart) * Creatinine was 1.80 will less than a month ago, 2.30 on admission and now 1.7 * waiting on faxed labs from [facility] to determine her baseline kidney function * BUN, EGFR improving on fluids but still at 41, 30 respectively * hydralazine ordered to help keep her blood pressure under control * Renal US shows no abnormalities * Hold nephrotoxic agents including ibuprofen and Irbesartan * Nephrology consulted 09/06/23: * BUN 34, creatinine 1.4, EGFR 35, creatinine clearance 21, potassium 3.9, sodium level 136 * Nephrology consulted and following * Renal ultrasound showing normal kidney size, no hydronephrosis * Continue amlodipine 5 mg and Imdur 30 mg for blood pressure control * Will continue to hold irbesartan and allopurinol 09/07/23: * BUN 35, creatinine 1.5, potassium 3.8, sodium 136, eGFR 33, creatinine clearance 21 * Nephrology feels that the dehydration coupled with her use of an Arb for blood pressure control has contributed to her acute kidney injury. Her baseline creatinine ranges between 1.8-1.9. * We will go ahead and restart her Avapro now that her creatinine is below her baseline and see how she does today * Encouraged patient to increase her intake of oral food and fluids * Will continue to hold her allopurinol for now * Nephrology following (2) Alteration in neurological status: Code(s): R29.90 - Unspecified symptoms and signs involving the nervous system Status: Acute Assessment and Plan: 09/05/23:(copied from chart) * Could be due to worsening kidney function * Not at patient baseline per family * CT scan of brain W/O contrast ordered, recent fall with bruising evidence * EEG ordered to rule out subclinical seizures * May consult neurology if appropriate 09/06/23: * EEG results pending * CT of the brain without contrast negative for any acute changes, showed age- related changes only * Patient is alert and oriented x3 today, interactive, following commands, EOMs intact, PERRLA, strength 5/5 in all 4 extremities, cranial nerves intact, denies any decreased sensation. * Kidney function improved today BUN 34, creatinine 1.40, estimated GFR 35, potassium 3.9, sodium 136 * Continue to monitor daily labs 09/07/23: * EEG results are still pending * Patient does not have any neuro deficits on exam * Will continue to monitor neuro status (3) Hyperkalemia: Code(s): E87.5 - Hyperkalemia Status: Acute Assessment and Plan: 09/05/23:(copied from chart) * elevated on admission, likely due to CKD * 4.2 on recheck this am * continue to monitor 09/06/23: * Potassium today 3.9 * Continue to monitor daily labs 09/07/23: * Potassium 3.8 today, no need to replace * Continue to monitor daily labs (4) Hypothyroidism: Code(s): E03.9 - Hypothyroidism, unspecified Status: Chronic Assessment and Plan: 09/05/23:(copied from chart) * TSH recheck 0.198, T4 normal * T3 low * continue home levothyroxine 09/06/23: * No change to current treatment plan 09/07/23: * No change to current treatment plan (5) Type 2 diabetes mellitus: Code(s): E11.9 - Type 2 diabetes mellitus without complications Status: Chronic Assessment and Plan: 09/05/23:(copied from chart) * sliding scale insulin, Accu-C
--- NOTE | 2023-09-07 08:49 | PM.IMPN ---
Progress Note: A&P Assessment and Plan (1) Acute on chronic kidney failure: Code(s): N17.9 - Acute kidney failure, unspecified; N18.9 - Chronic kidney disease, unspecified Status: Acute Assessment and Plan: 09/05/23:(copied from chart) Creatinine was 1.80 will less than a month ago, 2.30 on admission and now 1.7 waiting on faxed labs from [facility] to determine her baseline kidney function BUN, EGFR improving on fluids but still at 41, 30 respectively hydralazine ordered to help keep her blood pressure under control Renal US shows no abnormalities Hold nephrotoxic agents including ibuprofen and Irbesartan Nephrology consulted 09/06/23: BUN 34, creatinine 1.4, EGFR 35, creatinine clearance 21, potassium 3.9, sodium level 136 Nephrology consulted and following Renal ultrasound showing normal kidney size, no hydronephrosis Continue amlodipine 5 mg and Imdur 30 mg for blood pressure control Will continue to hold irbesartan and allopurinol 09/07/23: BUN 35, creatinine 1.5, potassium 3.8, sodium 136, eGFR 33, creatinine clearance 21 Nephrology feels that the dehydration coupled with her use of an Arb for blood pressure control has contributed to her acute kidney injury. Her baseline creatinine ranges between 1.8-1.9. We will go ahead and restart her Avapro now that her creatinine is below her baseline and see how she does today Encouraged patient to increase her intake of oral food and fluids Will continue to hold her allopurinol for now Nephrology following (2) Alteration in neurological status: Code(s): R29.90 - Unspecified symptoms and signs involving the nervous system Status: Acute Assessment and Plan: 09/05/23:(copied from chart) Could be due to worsening kidney function Not at patient baseline per family CT scan of brain W/O contrast ordered, recent fall with bruising evidence EEG ordered to rule out subclinical seizures May consult neurology if appropriate 09/06/23: EEG results pending CT of the brain without contrast negative for any acute changes, showed age-related changes only Patient is alert and oriented x3 today, interactive, following commands, EOMs intact, PERRLA, strength 5/5 in all 4 extremities, cranial nerves intact, denies any decreased sensation. Kidney function improved today BUN 34, creatinine 1.40, estimated GFR 35, potassium 3.9, sodium 136 Continue to monitor daily labs 09/07/23: EEG results are still pending Patient does not have any neuro deficits on exam Will continue to monitor neuro status (3) Hyperkalemia: Code(s): E87.5 - Hyperkalemia Status: Acute Assessment and Plan: 09/05/23:(copied from chart) elevated on admission, likely due to CKD 4.2 on recheck this am continue to monitor 09/06/23: Potassium today 3.9 Continue to monitor daily labs 09/07/23: Potassium 3.8 today, no need to replace Continue to monitor daily labs (4) Hypothyroidism: Code(s): E03.9 - Hypothyroidism, unspecified Status: Chronic Assessment and Plan: 09/05/23:(copied from chart) TSH recheck 0.198, T4 normal T3 low continue home levothyroxine 09/06/23: No change to current treatment plan 09/07/23: No change to current treatment plan (5) Type 2 diabetes mellitus: Code(s): E11.9 - Type 2 diabetes mellitus without complications Status: Chronic Assessment and Plan: 09/05/23:(copied from chart) sliding scale insulin, Accu-Cheks, and hypoglycemic protocol holding metformin due to kidney function 09/06/23: No change to current treatment plan 09/07/23: Blood sugars ranging 122-197 No change to current treatment plan Continue to hold metformin Time Spent With Patient Time with patient: Greater than 35 minutes Subjective Date/time seen: 09/07/23 08:49 Interval history: 09/05/23: (copied from chart) Patient is a 88 YO female with dementia, hypertension, hyperlipid
[2023-09-07] MEDS: THERAPEUTIC MULTIVITAMINS/MINERALS TAB (*BKC) 1 TABLET PO (09:11)
[2023-09-07] MEDS: ISOSORBIDE MONONITRATE 30 MG TAB.ER.24H PO (09:11)
[2023-09-07] MEDS: ATORVASTATIN 20 MG TABLET PO (09:11)
[2023-09-07] MEDS: ASPIRIN 81 MG ENTERIC TABLET PO (09:11)
[2023-09-07] MEDS: ASCORBIC ACID 500 MG TABLET PO (09:11)
[2023-09-07] MEDS: VITAMIN B COMPLEX CAPSULE 1 CAP PO (09:11)
[2023-09-07] MEDS: SERTRALINE HCL 50 MG TABLET PO (09:11)
[2023-09-07] MEDS: amLODIPine BESYLATE 5 MG TABLET PO (09:11)
[2023-09-07] MEDS: TRIAMCINOLONE ACET 0.1% CREAM 15 GM TUBE 1 APPLIC TOPICAL (09:11)
[2023-09-07 11:45] LABS: Glucose Point of Care 213 mg/dl (65-105)
[2023-09-07] MEDS: INSULIN ASPART (*BKC) 100 UNITS/ML SUB-Q (13:08)
--- NOTE | 2023-09-07 13:13 | P.PNNP_ITS ---
Progress Note: A&P Assessment and Plan (1) TIMI (acute kidney injury): Code(s): N17.9 - Acute kidney failure, unspecified Status: Acute Assessment and Plan: * possibly due to volume depletion/poor oral intake in the context on ongoing ARB use * improvement noted in renal function with just IVFs * evaluation to date: * renal ultrasound okay * CPK low * urine electrolytes non-prerenal * urine eosinophils negative * ARB on hold * follow trend of repeat labs (2) Chronic kidney disease, stage IV (severe): Code(s): N18.4 - Chronic kidney disease, stage 4 (severe) Status: Chronic Assessment and Plan: * baseline creatinine runs ~ 1.7 - 1.9mg/dl from [facility] records * presumably due to HTN, diabetes, vascular disease, and age * I wonder if her dementia and fluctuating oral intake causes her creatinine to fluctuate even higher.... * creatinine better than baseline currently (3) Hyperkalemia: Code(s): E87.5 - Hyperkalemia Status: Acute Assessment and Plan: * resolved * presumably due to volume depletion + ARB therapy * resolving with medical management * follow trend of K+ (4) Altered mental status: Code(s): R41.82 - Altered mental status, unspecified Status: Acute Assessment and Plan: * improvement noted * due to TIMI/ARF? * rule out infection * worsening of baseline dementia? * follow mentation (5) Hypertension: Code(s): I10 - Essential (primary) hypertension Status: Chronic Assessment and Plan: * appears difficult to control at baseline * off ARB at this time but not opposed to restarting * using PRN IV hyralazine with her other oral medications to control * follow trend of hemodynamics (6) Type 2 diabetes mellitus: Code(s): E11.9 - Type 2 diabetes mellitus without complications Status: Chronic Assessment and Plan: * follow accu-cheks * glycemic control per hospitalits. Will continue to follow. Subjective Date/time seen: 09/07/23 13:13 Interval history: Follow-up for acute kidney injury/acute renal failure on chronic kidney disease. Renal function as well as mentation continue to improve; BP still running a bit high but no other acute issues/complaints voiced at the time of my visit; no issues/events overnight or earlier this morning. Exam Narrative: General: elderly female in NAD Heart: normal S1 and S2; no rub Lungs: clear to auscultation Abdomen: soft, nontender, nondistended, positive bowel sounds Extremities: no cyanosis or clubbing; no edema Skin: warm and intact Objective Data Vital Signs Vital Signs: Vital Signs Temp Pulse Resp BP Pulse Ox O2 Del Method 09/07/23 13:05 98.5 F 90 20 140/68 100 09/07/23 12:00 92 Room Air 09/07/23 03:30 98.1 F 76 20 158/66 H 98 09/07/23 04:00 84 09/07/23 00:00 87 09/07/23 01:00 73 170/77 H 09/06/23 20:35 97.8 F 85 16 127/67 95 09/06/23 20:00 87 20 96 Room Air 09/06/23 20:00 87 Intake/Output Intake/Output: Intake & Output 09/04/23 09/05/23 09/06/23 09/07/23 23:59 23:59 23:59 23:59 Intake Total 1000 2100 4340 1410 Output Total 75 Balance 925
--- NOTE | 2023-09-07 13:13 | PM.PNNEP ---
Progress Note: A&P Assessment and Plan (1) TIMI (acute kidney injury): Code(s): N17.9 - Acute kidney failure, unspecified Status: Acute Assessment and Plan: possibly due to volume depletion/poor oral intake in the context on ongoing ARB use improvement noted in renal function with just IVFs evaluation to date: renal ultrasound okay CPK low urine electrolytes non-prerenal urine eosinophils negative ARB on hold follow trend of repeat labs (2) Chronic kidney disease, stage IV (severe): Code(s): N18.4 - Chronic kidney disease, stage 4 (severe) Status: Chronic Assessment and Plan: baseline creatinine runs ~ 1.7 - 1.9mg/dl from [facility] records presumably due to HTN, diabetes, vascular disease, and age I wonder if her dementia and fluctuating oral intake causes her creatinine to fluctuate even higher.... creatinine better than baseline currently (3) Hyperkalemia: Code(s): E87.5 - Hyperkalemia Status: Acute Assessment and Plan: resolved presumably due to volume depletion + ARB therapy resolving with medical management follow trend of K+ (4) Altered mental status: Code(s): R41.82 - Altered mental status, unspecified Status: Acute Assessment and Plan: improvement noted due to TIMI/ARF? rule out infection worsening of baseline dementia? follow mentation (5) Hypertension: Code(s): I10 - Essential (primary) hypertension Status: Chronic Assessment and Plan: appears difficult to control at baseline off ARB at this time but not opposed to restarting using PRN IV hyralazine with her other oral medications to control follow trend of hemodynamics (6) Type 2 diabetes mellitus: Code(s): E11.9 - Type 2 diabetes mellitus without complications Status: Chronic Assessment and Plan: follow accu-cheks glycemic control per hospitalits. Will continue to follow. Subjective Date/time seen: 09/07/23 13:13 Interval history: Follow-up for acute kidney injury/acute renal failure on chronic kidney disease. Renal function as well as mentation continue to improve; BP still running a bit high but no other acute issues/complaints voiced at the time of my visit; no issues/events overnight or earlier this morning. Exam Narrative: General: elderly female in NAD Heart: normal S1 and S2; no rub Lungs: clear to auscultation Abdomen: soft, nontender, nondistended, positive bowel sounds Extremities: no cyanosis or clubbing; no edema Skin: warm and intact Objective Data Vital Signs Vital Signs: Vital Signs Temp Pulse Resp BP Pulse Ox O2 Del Method 09/07/23 13:05 98.5 F 90 20 140/68 100 09/07/23 12:00 92 Room Air 09/07/23 03:30 98.1 F 76 20 158/66 H 98 09/07/23 04:00 84 09/07/23 00:00 87 09/07/23 01:00 73 170/77 H 09/06/23 20:35 97.8 F 85 16 127/67 95 09/06/23 20:00 87 20 96 Room Air 09/06/23 20:00 87 Intake/Output Intake/Output: Intake & Output 09/04/23 09/05/23 09/06/23 09/07/23 23:59 23:59 23:59 23:59 Intake Total 1000 2100 4340 1410 Output Total 75 Balance 925 2100 4340 1410 Meds/Results Medications: Active Medications Generic Name Dose Route Start Last Admin Trade Name Freq PRN Reason Stop Dose Admin Acetaminophen 650 mg 09/04/23 18:35 09/07/23 15:02 Acetaminophen 325 Mg Tablet PO 650 mg Q4H PRN Administration Mild Pain (1-3) or Fever Amlodipine Besylate 5 mg 09/06/23 14:00 09/07/23 09:11 Amlodipine Besylate 5 Mg Tablet PO 5 mg DAILY YOBANY Administration Ascorbic Acid 500 mg 09/07/23 09:00 09/07/23 09:11 Ascorbic Acid 500 Mg Tablet PO 500 mg DAILY YOBANY Administration Aspirin 81 mg 09/06/23 14:00 09/07/23 09:11 Aspirin 81 Mg Enteric Tablet PO 81 mg DAILY YOBANY Administration Atorvastatin Calcium 20 mg 09/06/23 14:00 09/07/23 09:11
--- NOTE | 2023-09-07 14:27 | WPDNEUROLOGY ---
Neurology EEG Report General Information Date of Study: 09/06/23 TEST eeg DIAGNOSIS Change in ne EEG NUMBER [id number] CLINICAL HISTORY patient was brought into the hospital for altered mental status and was noted to have continuous head and eye movements throughout the tracing. EEG DESCRIPTION Background rhythm consists of low to medium voltage 5 to 7 hertz per 2nd theta activity admixed with multiple movement artifacts. Bilateral symmetrical sleep activity seen during sleep with a mixture of beta theta activity and subsequently bilateral symmetrical sleep spindles but again admixed with multiple movement artifacts. Hyperventilation not done. Photic stimulation not done. Non paroxysmal. Nonfocal. Nonlateralizing. IMPRESSION Abnormal record due to the presence of bihemispheric slow activity without any evidence of paroxysmal activity. This abnormality suggestive of organic or metabolic encephalopathy or postictal state. Clinical correlation recommended. There is no evidence of any seizure-like discharges throughout the tracing.
[2023-09-07] MEDS: LEVOTHYROXINE SODIUM 50 MCG TABLET PO (15:02)
[2023-09-07] MEDS: ACETAMINOPHEN 325 MG TABLET 650 MG PO (15:02)
[2023-09-07 16:28] LABS: Glucose Point of Care 150 mg/dl (65-105)
[2023-09-07 21:23] LABS: Glucose Point of Care 153 mg/dl (65-105)
[2023-09-08] VITALS (10 sets, daily range): BP systolic 132–180; BP diastolic 62–80; PULSE 78–94; RESP 16–20; TEMP 36.2–36.4; O2SAT 97–99
[2023-09-08] MEDS: MEGESTROL ACETATE (*CHEMO) ORAL SUSP 40 MG/ML SYR 400 MG PO ×3 (05:26→17:26)
[2023-09-08] MEDS: ACETAMINOPHEN 325 MG TABLET 650 MG PO ×2 (05:27→09:09)
[2023-09-08] MEDS: LEVOTHYROXINE SODIUM 50 MCG TABLET PO (05:27)
[2023-09-08 06:15] LABS: Creatinine Urine 21.3 mg/dL; Total Protein Urine Random 26 mg/dL; Ur Ttl Prot Creatinine Ratio 1.22 mg/mg (0-0.20); Urea Random Urine 328 MG/DL
[2023-09-08 06:16] LABS: Sodium Urine Random 110 meq/L
[2023-09-08 06:42] LABS: Eosinophil Urine None Seen % (None Seen)
[2023-09-08 06:49] LABS: Urine Eos QC 2nd Tech Confirmed
--- NOTE | 2023-09-08 07:23 | P.PNIM_ITS ---
Progress Note: A&P Assessment and Plan (1) Acute on chronic kidney failure: Code(s): N17.9 - Acute kidney failure, unspecified; N18.9 - Chronic kidney disease, unspecified Status: Acute Assessment and Plan: 09/05/23:(copied from chart) * Creatinine was 1.80 will less than a month ago, 2.30 on admission and now 1.7 * waiting on faxed labs from [facility] to determine her baseline kidney function * BUN, EGFR improving on fluids but still at 41, 30 respectively * hydralazine ordered to help keep her blood pressure under control * Renal US shows no abnormalities * Hold nephrotoxic agents including ibuprofen and Irbesartan * Nephrology consulted 09/06/23: * BUN 34, creatinine 1.4, EGFR 35, creatinine clearance 21, potassium 3.9, sodium level 136 * Nephrology consulted and following * Renal ultrasound showing normal kidney size, no hydronephrosis * Continue amlodipine 5 mg and Imdur 30 mg for blood pressure control * Will continue to hold irbesartan and allopurinol 09/07/23: * BUN 35, creatinine 1.5, potassium 3.8, sodium 136, eGFR 33, creatinine clearance 21 * Nephrology feels that the dehydration coupled with her use of an Arb for blood pressure control has contributed to her acute kidney injury. Her baseline creatinine ranges between 1.8-1.9. * We will go ahead and restart her Avapro now that her creatinine is below her baseline and see how she does today * Encouraged patient to increase her intake of oral food and fluids * Will continue to hold her allopurinol for now * Nephrology following 09/08/23: * For BUN 30, creatinine 1.3, potassium 4.0, sodium 136, bicarb 18 * Nephrology following * I restarted her Avapro and her allopurinol (2) Alteration in neurological status: Code(s): R29.90 - Unspecified symptoms and signs involving the nervous system Status: Acute Assessment and Plan: 09/05/23:(copied from chart) * Could be due to worsening kidney function * Not at patient baseline per family * CT scan of brain W/O contrast ordered, recent fall with bruising evidence * EEG ordered to rule out subclinical seizures * May consult neurology if appropriate 09/06/23: * EEG results pending * CT of the brain without contrast negative for any acute changes, showed age- related changes only * Patient is alert and oriented x3 today, interactive, following commands, EOMs intact, PERRLA, strength 5/5 in all 4 extremities, cranial nerves intact, denies any decreased sensation. * Kidney function improved today BUN 34, creatinine 1.40, estimated GFR 35, potassium 3.9, sodium 136 * Continue to monitor daily labs 09/07/23: * EEG results are still pending * Patient does not have any neuro deficits on exam * Will continue to monitor neuro status 09/08/23: * EEG showing abnormal record due to the presence of thigh hemispheric slow activity without any evidence of paroxysmal activity, this abnormality suggestive of organic her metabolic encephalopathy or postictal state, there is no evidence of any seizure-like discharges throughout the tracing * Patient awakes to voice but then falls right back to sleep, she is not following commands today or holding a conversation which is a change from yesterday. I do not see any facial droop and her pupils are round and reactive to light. Nursing states that she has been like this the entire morning and only perked up when her son was he in the room. * We will go ahead and repeat her CT scan of her head today * Neurology consulted for further assistance, will appreciate their input. * Continue to monitor neuro status (3) Hyperkalemia:
--- NOTE | 2023-09-08 07:23 | PM.IMPN ---
Progress Note: A&P Assessment and Plan (1) Acute on chronic kidney failure: Code(s): N17.9 - Acute kidney failure, unspecified; N18.9 - Chronic kidney disease, unspecified Status: Acute Assessment and Plan: 09/05/23:(copied from chart) Creatinine was 1.80 will less than a month ago, 2.30 on admission and now 1.7 waiting on faxed labs from [facility] to determine her baseline kidney function BUN, EGFR improving on fluids but still at 41, 30 respectively hydralazine ordered to help keep her blood pressure under control Renal US shows no abnormalities Hold nephrotoxic agents including ibuprofen and Irbesartan Nephrology consulted 09/06/23: BUN 34, creatinine 1.4, EGFR 35, creatinine clearance 21, potassium 3.9, sodium level 136 Nephrology consulted and following Renal ultrasound showing normal kidney size, no hydronephrosis Continue amlodipine 5 mg and Imdur 30 mg for blood pressure control Will continue to hold irbesartan and allopurinol 09/07/23: BUN 35, creatinine 1.5, potassium 3.8, sodium 136, eGFR 33, creatinine clearance 21 Nephrology feels that the dehydration coupled with her use of an Arb for blood pressure control has contributed to her acute kidney injury. Her baseline creatinine ranges between 1.8-1.9. We will go ahead and restart her Avapro now that her creatinine is below her baseline and see how she does today Encouraged patient to increase her intake of oral food and fluids Will continue to hold her allopurinol for now Nephrology following 09/08/23: For BUN 30, creatinine 1.3, potassium 4.0, sodium 136, bicarb 18 Nephrology following I restarted her Avapro and her allopurinol (2) Alteration in neurological status: Code(s): R29.90 - Unspecified symptoms and signs involving the nervous system Status: Acute Assessment and Plan: 09/05/23:(copied from chart) Could be due to worsening kidney function Not at patient baseline per family CT scan of brain W/O contrast ordered, recent fall with bruising evidence EEG ordered to rule out subclinical seizures May consult neurology if appropriate 09/06/23: EEG results pending CT of the brain without contrast negative for any acute changes, showed age-related changes only Patient is alert and oriented x3 today, interactive, following commands, EOMs intact, PERRLA, strength 5/5 in all 4 extremities, cranial nerves intact, denies any decreased sensation. Kidney function improved today BUN 34, creatinine 1.40, estimated GFR 35, potassium 3.9, sodium 136 Continue to monitor daily labs 09/07/23: EEG results are still pending Patient does not have any neuro deficits on exam Will continue to monitor neuro status 09/08/23: EEG showing abnormal record due to the presence of thigh hemispheric slow activity without any evidence of paroxysmal activity, this abnormality suggestive of organic her metabolic encephalopathy or postictal state, there is no evidence of any seizure-like discharges throughout the tracing Patient awakes to voice but then falls right back to sleep, she is not following commands today or holding a conversation which is a change from yesterday. I do not see any facial droop and her pupils are round and reactive to light. Nursing states that she has been like this the entire morning and only perked up when her son was he in the room. We will go ahead and repeat her CT scan of her head today Neurology consulted for further assistance, will appreciate their input. Continue to monitor neuro status (3) Hyperkalemia: Code(s): E87.5 - Hyperkalemia Status: Acute Assessment and Plan: 09/05/23:(copied from chart) elevated on admission, likely due to CKD 4.2 on recheck this am continue to monitor 09/06/23: Potassium today 3.9 Continue to monitor daily labs 09/07/23: Potassium 3.8 today, no need to replace Continue to monitor daily labs 09/08/23: Potassium 4.0, no need to
[2023-09-08 07:24] LABS: Alanine Aminotransferase 29 U/L (6-35); Albumin Level 4.1 g/dL (3.5-5.1); Alkaline Phosphatase 70 U/L (38-126); Anion Gap 12 mmol/L (8-16); Aspartate Amino Transferase 30 U/L (14-36); Bilirubin,Total 0.6 mg/dL (0.2-1.3); Blood Urea Nitrogen 30 mg/dL (7-17); Calcium 9.6 mg/dL (8.4-10.2); Carbon Dioxide 18 mmol/L (22-30); Chloride 106 mmol/L (98-107); Estimated CRCL calculation 24 ml/min; Estimated Glomerular Filt Rate 39; Glucose 140 mg/dL (65-110); Sodium 136 mmol/L (137-145)
[2023-09-08 07:34] LABS: Hematocrit 34.1 % (37.0-47.0); Hemoglobin 10.9 g/dL (12.0-15.0); Mean Corpuscular Hemoglobin 29.6 pg (26-34); Mean Corpuscular Volume 92.7 fl (80-100); Mean Platelet Volume 10.6 fl (7.4-10.4); Platelet Count Result 201 k/mm3 (150-375); Red Blood Count 3.68 M/mm3 (4.2-5.4); White Blood Count 7.3 K/mm3 (4.5-10.0)
[2023-09-08 07:46] LABS: Glucose Point of Care 130 mg/dl (65-105)
[2023-09-08] MEDS: ASPIRIN 81 MG ENTERIC TABLET PO (09:09)
[2023-09-08] MEDS: IRBESARTAN 150 MG TABLET 300 MG PO (09:09)
[2023-09-08] MEDS: ISOSORBIDE MONONITRATE 30 MG TAB.ER.24H PO (09:09)
[2023-09-08] MEDS: ASCORBIC ACID 500 MG TABLET PO (09:09)
[2023-09-08] MEDS: THERAPEUTIC MULTIVITAMINS/MINERALS TAB (*BKC) 1 TABLET PO (09:09)
[2023-09-08] MEDS: ATORVASTATIN 20 MG TABLET PO (09:10)
[2023-09-08] MEDS: amLODIPine BESYLATE 5 MG TABLET PO (09:10)
[2023-09-08] MEDS: SERTRALINE HCL 50 MG TABLET PO (09:16)
[2023-09-08] MEDS: VITAMIN B COMPLEX CAPSULE 1 CAP PO (09:16)
--- NOTE | 2023-09-08 11:11 | PM.PNNEP ---
Progress Note: A&P Assessment and Plan (1) TIMI (acute kidney injury): Code(s): N17.9 - Acute kidney failure, unspecified Status: Acute Assessment and Plan: improvement noted possibly due to volume depletion/poor oral intake in the context on ongoing ARB use improvement noted in renal function with just IVFs evaluation to date: renal ultrasound okay CPK low urine electrolytes non-prerenal urine eosinophils negative follow trend of repeat labs (2) Chronic kidney disease, stage IV (severe): Code(s): N18.4 - Chronic kidney disease, stage 4 (severe) Status: Chronic Assessment and Plan: baseline creatinine runs ~ 1.7 - 1.9mg/dl from [facility] records presumably due to HTN, diabetes, vascular disease, and age I wonder if her dementia and fluctuating oral intake causes her creatinine to fluctuate even higher.... creatinine better than baseline currently (3) Hyperkalemia: Code(s): E87.5 - Hyperkalemia Status: Acute Assessment and Plan: resolved presumably due to volume depletion + ARB therapy resolving with medical management follow trend of K+ (4) Altered mental status: Code(s): R41.82 - Altered mental status, unspecified Status: Acute Assessment and Plan: a bit of a decline in the last 24 hours worsening of baseline dementia? repeat head CT today Neurology following follow mentation (5) Hypertension: Code(s): I10 - Essential (primary) hypertension Status: Chronic Assessment and Plan: appears difficult to control at baseline back on ARB therapy using PRN IV hyralazine with her other oral medications to control follow trend of hemodynamics (6) Type 2 diabetes mellitus: Code(s): E11.9 - Type 2 diabetes mellitus without complications Status: Chronic Assessment and Plan: follow accu-cheks glycemic control per hospitalits. Will continue to follow. Subjective Date/time seen: 09/08/23 11:11 Interval history: Follow-up for acute kidney injury/acute renal failure on chronic kidney disease. Renal function remains stable if not better but her mentation seems to have deteriorated in the last 24 hours; she is not as awake or conversive as yesterday which seems to be have been noted since earlier this morning; no other acute issues/events to report. Exam Narrative: General: elderly female in NAD; more lethargic Heart: normal S1 and S2; no rub Lungs: clear to auscultation Abdomen: soft, nontender, nondistended, positive bowel sounds Extremities: no cyanosis or clubbing; no edema Skin: no rash Objective Data Vital Signs Vital Signs: Vital Signs Temp Pulse Resp BP Pulse Ox O2 Del Method 09/08/23 11:00 97.1 F L 87 16 159/71 H 97 09/08/23 09:00 Room Air 09/08/23 06:00 97.3 F L 78 20 180/80 H 99 09/08/23 04:00 94 09/08/23 00:00 81 09/07/23 20:45 98.2 F 82 16 157/73 H 99 09/07/23 20:00 98 20 100 Room Air 09/07/23 20:00 99 Intake/Output Intake/Output: Intake & Output 09/05/23 09/06/23 09/07/23 09/08/23 23:59 23:59 23:59 23:59 Intake Total 2100 4340 1890 340 Output Total 2024 Balance 2100 4340 1890 -1685 Meds/Results Medications: Active Medications Generic Name Dose Route Start Last Admin Trade Name Freq PRN Reason Stop Dose Admin Acetaminophen 650 mg 09/04/23 18:35 09/08/23 09:09 Acetaminophen 325 Mg Tablet PO 650 mg Q4H PRN Administration Mild Pain (1-3) or Fever Allopurinol 100 mg 09/09/23 09:00 Allopurinol 100 Mg Tablet PO DAILY [facility] Amlodipine Besylate 5 mg 09/06/23 14:00 09/08/23 09:10 Amlodipine Besylate 5 Mg Tablet PO 5 mg DAILY [facility] Administration Ascorbic Acid 500 mg 09/07/23 09:00 09/08/23 09:09 Ascorbic Acid 500 Mg Tablet PO 500 mg DAILY [facility] Administration Aspirin 81 mg 09/06/23 14:00 09/08/23 09:09 Asp
--- NOTE | 2023-09-08 11:11 | P.PNNP_ITS ---
Progress Note: A&P Assessment and Plan (1) TIMI (acute kidney injury): Code(s): N17.9 - Acute kidney failure, unspecified Status: Acute Assessment and Plan: * improvement noted * possibly due to volume depletion/poor oral intake in the context on ongoing ARB use * improvement noted in renal function with just IVFs * evaluation to date: * renal ultrasound okay * CPK low * urine electrolytes non-prerenal * urine eosinophils negative * follow trend of repeat labs (2) Chronic kidney disease, stage IV (severe): Code(s): N18.4 - Chronic kidney disease, stage 4 (severe) Status: Chronic Assessment and Plan: * baseline creatinine runs ~ 1.7 - 1.9mg/dl from [facility] records * presumably due to HTN, diabetes, vascular disease, and age * I wonder if her dementia and fluctuating oral intake causes her creatinine to fluctuate even higher.... * creatinine better than baseline currently (3) Hyperkalemia: Code(s): E87.5 - Hyperkalemia Status: Acute Assessment and Plan: * resolved * presumably due to volume depletion + ARB therapy * resolving with medical management * follow trend of K+ (4) Altered mental status: Code(s): R41.82 - Altered mental status, unspecified Status: Acute Assessment and Plan: * a bit of a decline in the last 24 hours * worsening of baseline dementia? * repeat head CT today * Neurology following * follow mentation (5) Hypertension: Code(s): I10 - Essential (primary) hypertension Status: Chronic Assessment and Plan: * appears difficult to control at baseline * back on ARB therapy * using PRN IV hyralazine with her other oral medications to control * follow trend of hemodynamics (6) Type 2 diabetes mellitus: Code(s): E11.9 - Type 2 diabetes mellitus without complications Status: Chronic Assessment and Plan: * follow accu-cheks * glycemic control per hospitalits. Will continue to follow. Subjective Date/time seen: 09/08/23 11:11 Interval history: Follow-up for acute kidney injury/acute renal failure on chronic kidney disease. Renal function remains stable if not better but her mentation seems to have deteriorated in the last 24 hours; she is not as awake or conversive as yesterday which seems to be have been noted since earlier this morning; no other acute issues/events to report. Exam Narrative: General: elderly female in NAD; more lethargic Heart: normal S1 and S2; no rub Lungs: clear to auscultation Abdomen: soft, nontender, nondistended, positive bowel sounds Extremities: no cyanosis or clubbing; no edema Skin: no rash Objective Data Vital Signs Vital Signs: Vital Signs Temp Pulse Resp BP Pulse Ox O2 Del Method 09/08/23 11:00 97.1 F L 87 16 159/71 H 97 09/08/23 09:00 Room Air 09/08/23 06:00 97.3 F L 78 20 180/80 H 99 09/08/23 04:00 94 09/08/23 00:00 81 09/07/23 20:45 98.2 F 82 16 157/73 H 99 09/07/23 20:00 98 20 100 Room Air 09/07/23 20:00 99 Intake/Output Intake/Output: Intake & Output 09/05/23 09/06/23 09/07/23 09/08/23 23:59 23:59 23:59 23:59 Intake Total 2100 4340 1890 340 Output Total 2
[2023-09-08 11:13] LABS: Glucose Point of Care 124 mg/dl (65-105)
[2023-09-08 16:48] LABS: Glucose Point of Care 126 mg/dl (65-105)
[2023-09-08] MEDS: hydrALAZINE 5 MG TABLET PO ×2 (17:26→21:16)
[2023-09-08 23:50] LABS: Glucose Point of Care 129 mg/dl (65-105)
[2023-09-09] VITALS (8 sets, daily range): BP systolic 123–161; BP diastolic 54–79; PULSE 76–87; RESP 16–18; TEMP 36.1–36.6; O2SAT 97
[2023-09-09] MEDS: LEVOTHYROXINE SODIUM 50 MCG TABLET PO (05:49)
[2023-09-09] MEDS: MEGESTROL ACETATE (*CHEMO) ORAL SUSP 40 MG/ML SYR 400 MG PO ×3 (05:49→16:59)
[2023-09-09 07:25] LABS: Hematocrit 30.1 % (37.0-47.0); Mean Corpuscular HGB Conc 33.2 g/dl (32-36); Mean Corpuscular Hemoglobin 29.7 pg (26-34); Mean Corpuscular Volume 89.3 fl (80-100); Platelet Count Result 206 k/mm3 (150-375); Red Blood Count 3.37 M/mm3 (4.2-5.4); Red Cell Distribution Width 13.8 % (11.5-14.5); White Blood Count 6.1 K/mm3 (4.5-10.0)
[2023-09-09 07:36] LABS: Alanine Aminotransferase 25 U/L (6-35); Albumin Level 3.6 g/dL (3.5-5.1); Alkaline Phosphatase 68 U/L (38-126); Anion Gap 11 mmol/L (8-16); Aspartate Amino Transferase 25 U/L (14-36); Bilirubin,Total 0.5 mg/dL (0.2-1.3); Blood Urea Nitrogen 27 mg/dL (7-17); Calcium 9.7 mg/dL (8.4-10.2); Carbon Dioxide 18 mmol/L (22-30); Chloride 106 mmol/L (98-107); Estimated CRCL calculation 22 ml/min; Estimated Glomerular Filt Rate 35; Glucose 119 mg/dL (65-110); Potassium 4.1 mmol/L (3.4-5.0); Sodium 135 mmol/L (137-145)
[2023-09-09 07:40] LABS: Glucose Point of Care 107 mg/dl (65-105)
--- NOTE | 2023-09-09 10:01 | P.PNIM_ITS ---
Progress Note: A&P Assessment and Plan (1) Acute on chronic kidney failure: Code(s): N17.9 - Acute kidney failure, unspecified; N18.9 - Chronic kidney disease, unspecified Status: Acute Assessment and Plan: 09/05/23:(copied from chart) * Creatinine was 1.80 will less than a month ago, 2.30 on admission and now 1.7 * waiting on faxed labs from [facility] to determine her baseline kidney function * BUN, EGFR improving on fluids but still at 41, 30 respectively * hydralazine ordered to help keep her blood pressure under control * Renal US shows no abnormalities * Hold nephrotoxic agents including ibuprofen and Irbesartan * Nephrology consulted 09/06/23: * BUN 34, creatinine 1.4, EGFR 35, creatinine clearance 21, potassium 3.9, sodium level 136 * Nephrology consulted and following * Renal ultrasound showing normal kidney size, no hydronephrosis * Continue amlodipine 5 mg and Imdur 30 mg for blood pressure control * Will continue to hold irbesartan and allopurinol 09/07/23: * BUN 35, creatinine 1.5, potassium 3.8, sodium 136, eGFR 33, creatinine clearance 21 * Nephrology feels that the dehydration coupled with her use of an Arb for blood pressure control has contributed to her acute kidney injury. Her baseline creatinine ranges between 1.8-1.9. * We will go ahead and restart her Avapro now that her creatinine is below her baseline and see how she does today * Encouraged patient to increase her intake of oral food and fluids * Will continue to hold her allopurinol for now * Nephrology following 09/08/23: * For BUN 30, creatinine 1.3, potassium 4.0, sodium 136, bicarb 18 * Nephrology following * I restarted her Avapro and her allopurinol 09/09/23: * BUN 27, Creatinine 1.40, potassium 4.1, Na= 135, Bicarb 18 * Nephrology following * No change to current treatment plan (2) Alteration in neurological status: Code(s): R29.90 - Unspecified symptoms and signs involving the nervous system Status: Acute Assessment and Plan: 09/05/23:(copied from chart) * Could be due to worsening kidney function * Not at patient baseline per family * CT scan of brain W/O contrast ordered, recent fall with bruising evidence * EEG ordered to rule out subclinical seizures * May consult neurology if appropriate 09/06/23: * EEG results pending * CT of the brain without contrast negative for any acute changes, showed age- related changes only * Patient is alert and oriented x3 today, interactive, following commands, EOMs intact, PERRLA, strength 5/5 in all 4 extremities, cranial nerves intact, denies any decreased sensation. * Kidney function improved today BUN 34, creatinine 1.40, estimated GFR 35, potassium 3.9, sodium 136 * Continue to monitor daily labs 09/07/23: * EEG results are still pending * Patient does not have any neuro deficits on exam * Will continue to monitor neuro status 09/08/23: * EEG showing abnormal record due to the presence of thigh hemispheric slow activity without any evidence of paroxysmal activity, this abnormality suggestive of organic her metabolic encephalopathy or postictal state, there is no evidence of any seizure-like discharges throughout the tracing * Patient awakes to voice but then falls right back to sleep, she is not following commands today or holding a conversation which is a change from yesterday. I do not see any facial droop and her pupils are round and reactive to light. Nursing states that she has been like this the entire morning and only perked up when her son was he in the room. * We will go ahead and repeat her CT scan of her head today
--- NOTE | 2023-09-09 10:01 | PM.IMPN ---
Progress Note: A&P Assessment and Plan (1) Acute on chronic kidney failure: Code(s): N17.9 - Acute kidney failure, unspecified; N18.9 - Chronic kidney disease, unspecified Status: Acute Assessment and Plan: 09/05/23:(copied from chart) Creatinine was 1.80 will less than a month ago, 2.30 on admission and now 1.7 waiting on faxed labs from [facility] to determine her baseline kidney function BUN, EGFR improving on fluids but still at 41, 30 respectively hydralazine ordered to help keep her blood pressure under control Renal US shows no abnormalities Hold nephrotoxic agents including ibuprofen and Irbesartan Nephrology consulted 09/06/23: BUN 34, creatinine 1.4, EGFR 35, creatinine clearance 21, potassium 3.9, sodium level 136 Nephrology consulted and following Renal ultrasound showing normal kidney size, no hydronephrosis Continue amlodipine 5 mg and Imdur 30 mg for blood pressure control Will continue to hold irbesartan and allopurinol 09/07/23: BUN 35, creatinine 1.5, potassium 3.8, sodium 136, eGFR 33, creatinine clearance 21 Nephrology feels that the dehydration coupled with her use of an Arb for blood pressure control has contributed to her acute kidney injury. Her baseline creatinine ranges between 1.8-1.9. We will go ahead and restart her Avapro now that her creatinine is below her baseline and see how she does today Encouraged patient to increase her intake of oral food and fluids Will continue to hold her allopurinol for now Nephrology following 09/08/23: For BUN 30, creatinine 1.3, potassium 4.0, sodium 136, bicarb 18 Nephrology following I restarted her Avapro and her allopurinol 09/09/23: BUN 27, Creatinine 1.40, potassium 4.1, Na= 135, Bicarb 18 Nephrology following No change to current treatment plan (2) Alteration in neurological status: Code(s): R29.90 - Unspecified symptoms and signs involving the nervous system Status: Acute Assessment and Plan: 09/05/23:(copied from chart) Could be due to worsening kidney function Not at patient baseline per family CT scan of brain W/O contrast ordered, recent fall with bruising evidence EEG ordered to rule out subclinical seizures May consult neurology if appropriate 09/06/23: EEG results pending CT of the brain without contrast negative for any acute changes, showed age-related changes only Patient is alert and oriented x3 today, interactive, following commands, EOMs intact, PERRLA, strength 5/5 in all 4 extremities, cranial nerves intact, denies any decreased sensation. Kidney function improved today BUN 34, creatinine 1.40, estimated GFR 35, potassium 3.9, sodium 136 Continue to monitor daily labs 09/07/23: EEG results are still pending Patient does not have any neuro deficits on exam Will continue to monitor neuro status 09/08/23: EEG showing abnormal record due to the presence of thigh hemispheric slow activity without any evidence of paroxysmal activity, this abnormality suggestive of organic her metabolic encephalopathy or postictal state, there is no evidence of any seizure-like discharges throughout the tracing Patient awakes to voice but then falls right back to sleep, she is not following commands today or holding a conversation which is a change from yesterday. I do not see any facial droop and her pupils are round and reactive to light. Nursing states that she has been like this the entire morning and only perked up when her son was he in the room. We will go ahead and repeat her CT scan of her head today Neurology consulted for further assistance, will appreciate their input. Continue to monitor neuro status 09/09/23: Neurology consulted Repeat CT of head negative for any acute intracrainal process Patient more alert today and oriented x2. She follows commands and answers questions appropriately, speech is normal, facial features are normal, she makes eye contact, EOMI, PERRLA. Continue
[2023-09-09] MEDS: allopurinoL 100 MG TABLET PO (10:10)
[2023-09-09] MEDS: VITAMIN B COMPLEX CAPSULE 1 CAP PO (10:11)
[2023-09-09] MEDS: ACETAMINOPHEN 325 MG TABLET 650 MG PO ×2 (10:11→17:00)
[2023-09-09] MEDS: SERTRALINE HCL 50 MG TABLET PO (10:11)
[2023-09-09] MEDS: hydrALAZINE 5 MG TABLET PO ×4 (10:11→20:08)
[2023-09-09] MEDS: DOCUSATE SODIUM 100 MG CAPSULE PO (10:11)
[2023-09-09] MEDS: ASCORBIC ACID 500 MG TABLET PO (10:11)
[2023-09-09] MEDS: amLODIPine BESYLATE 5 MG TABLET PO (10:11)
[2023-09-09] MEDS: THERAPEUTIC MULTIVITAMINS/MINERALS TAB (*BKC) 1 TABLET PO (10:11)
[2023-09-09] MEDS: IRBESARTAN 150 MG TABLET 300 MG PO (10:12)
[2023-09-09] MEDS: ASPIRIN 81 MG ENTERIC TABLET PO (10:12)
[2023-09-09] MEDS: ISOSORBIDE MONONITRATE 30 MG TAB.ER.24H PO (10:12)
[2023-09-09] MEDS: ATORVASTATIN 20 MG TABLET PO (10:12)
--- NOTE | 2023-09-09 12:41 | P.PNNP_ITS ---
Progress Note: A&P Assessment and Plan (1) TIMI (acute kidney injury): Code(s): N17.9 - Acute kidney failure, unspecified Status: Acute Assessment and Plan: * Acute kidney injury * evaluation to date: * renal ultrasound okay * CPK low * urine electrolytes non-prerenal * urine eosinophils negative * Most likely due to pre renal azotemia. * Creatinine has fallen from 2.3 on admission to 1.4 today. It seems to be reaching a baseline in this general area. * (2) Chronic kidney disease, stage IV (severe): Code(s): N18.4 - Chronic kidney disease, stage 4 (severe) Status: Chronic Assessment and Plan: * baseline creatinine runs ~ 1.7 - 1.9mg/dl from [facility] records * presumably due to HTN, diabetes, vascular disease, and age * This varies with hydration status eating etc. (3) Hyperkalemia: Code(s): E87.5 - Hyperkalemia Status: Acute Assessment and Plan: * resolved * Potassium normal today (4) Altered mental status: Code(s): R41.82 - Altered mental status, unspecified Status: Acute Assessment and Plan: * Worsened between and Monday. * repeat head CT showed no acute issues. * Neurology following * Patient seems to doing pretty well with mentation today. (5) Hypertension: Code(s): I10 - Essential (primary) hypertension Status: Chronic Assessment and Plan: * appears difficult to control at baseline * Blood pressure still somewhat high but variable with systolics ranging between 130 and 180. * She is on amlodipine 5, hydralazine 5mg 4 times a day, irbesartan 300, and hydralazine p.r.n., * Will increase her seen hydralazine a little since this is at such a small dose. (6) Type 2 diabetes mellitus: Code(s): E11.9 - Type 2 diabetes mellitus without complications Status: Chronic Assessment and Plan: * follow accu-cheks * glycemic control per hospitalits. Subjective Date/time seen: 09/09/23 12:41 Interval history: Patient is lying in bed. She has no chest pain or shortness of breath. Comfortable lying flat. Exam Narrative: General: elderly female in NAD; more lethargic Heart: normal S1 and S2; no rub or gallop Lungs: clear bilaterally Abdomen: soft, nontender, nondistended, positive bowel sounds Extremities: no edema Skin: no rash Objective Data Vital Signs Vital Signs: Vital Signs - 24 hr 09/08/23 14:00 09/08/23 16:00 09/08/23 20:22 Temperature 97.1 F L 97.5 F L Pulse Rate 87 88 86 Respiratory Rate 16 18 Blood Pressure 159/71 H 132/62 Pulse Oximetry 97 98 Oxygen Delivery 09/08/23 20:00 09/08/23 20:00 09/09/23 00:00 Temperature Pulse Rate 89 80 Respiratory Rate Blood Pressure Pulse Oximetry 98 Oxygen Delivery Room Air 09/08/23 22:33 09/09/23 04:00 09/09/23 06:00 Temperature 97 F L Pulse Rate 76 83 Respiratory Rate 16 Blood Pressure 161/77 H Pulse Oximetry 98 97 Oxygen Delivery Room Air Intake/Output Intake/Output: Intake & Output 09/06/23 09/07/23 09/08/23 09/09/23 23:59 23:59 23:59 23:59
--- NOTE | 2023-09-09 12:41 | PM.PNNEP ---
Progress Note: A&P Assessment and Plan (1) TIMI (acute kidney injury): Code(s): N17.9 - Acute kidney failure, unspecified Status: Acute Assessment and Plan: Acute kidney injury evaluation to date: renal ultrasound okay CPK low urine electrolytes non-prerenal urine eosinophils negative Most likely due to pre renal azotemia. Creatinine has fallen from 2.3 on admission to 1.4 today. It seems to be reaching a baseline in this general area. (2) Chronic kidney disease, stage IV (severe): Code(s): N18.4 - Chronic kidney disease, stage 4 (severe) Status: Chronic Assessment and Plan: baseline creatinine runs ~ 1.7 - 1.9mg/dl from [facility] records presumably due to HTN, diabetes, vascular disease, and age This varies with hydration status eating etc. (3) Hyperkalemia: Code(s): E87.5 - Hyperkalemia Status: Acute Assessment and Plan: resolved Potassium normal today (4) Altered mental status: Code(s): R41.82 - Altered mental status, unspecified Status: Acute Assessment and Plan: Worsened between and Monday. repeat head CT showed no acute issues. Neurology following Patient seems to doing pretty well with mentation today. (5) Hypertension: Code(s): I10 - Essential (primary) hypertension Status: Chronic Assessment and Plan: appears difficult to control at baseline Blood pressure still somewhat high but variable with systolics ranging between 130 and 180. She is on amlodipine 5, hydralazine 5mg 4 times a day, irbesartan 300, and hydralazine p.r.n., Will increase her seen hydralazine a little since this is at such a small dose. (6) Type 2 diabetes mellitus: Code(s): E11.9 - Type 2 diabetes mellitus without complications Status: Chronic Assessment and Plan: follow accu-cheks glycemic control per hospitalits. Subjective Date/time seen: 09/09/23 12:41 Interval history: Patient is lying in bed. She has no chest pain or shortness of breath. Comfortable lying flat. Exam Narrative: General: elderly female in NAD; more lethargic Heart: normal S1 and S2; no rub or gallop Lungs: clear bilaterally Abdomen: soft, nontender, nondistended, positive bowel sounds Extremities: no edema Skin: no rash Objective Data Vital Signs Vital Signs: Vital Signs - 24 hr 09/08/23 14:00 09/08/23 16:00 09/08/23 20:22 Temperature 97.1 F L 97.5 F L Pulse Rate 87 88 86 Respiratory Rate 16 18 Blood Pressure 159/71 H 132/62 Pulse Oximetry 97 98 Oxygen Delivery 09/08/23 20:00 09/08/23 20:00 09/09/23 00:00 Temperature Pulse Rate 89 80 Respiratory Rate Blood Pressure Pulse Oximetry 98 Oxygen Delivery Room Air 09/08/23 22:33 09/09/23 04:00 09/09/23 06:00 Temperature 97 F L Pulse Rate 76 83 Respiratory Rate 16 Blood Pressure 161/77 H Pulse Oximetry 98 97 Oxygen Delivery Room Air Intake/Output Intake/Output: Intake & Output 09/06/23 09/07/23 09/08/23 09/09/23 23:59 23:59 23:59 23:59 Intake Total 4340 1890 580 290 Output Total 2025 1000 Balance 4340 1890 -0736 -626 Meds/Results Medications: Active Medications Generic Name Dose Route Start Last Admin Trade Name Freq PRN Reason Stop Dose Admin Acetaminophen 650 mg 09/04/23 18:35 09/09/23 10:11 Acetaminophen 325 Mg Tablet PO 650 mg Q4H PRN Administration Mild Pain (1-3) or Fever Allopurinol 100 mg 09/09/23 09:00 09/09/23 10:10 Allopurinol 100 Mg Tablet PO 100 mg DAILY [facility] Administration Amlodipine Besylate 5 mg 09/06/23 14:00 09/09/23 10:11 Amlodipine Besylate 5 Mg Tablet PO 5 mg DAILY [facility] Administration Ascorbic Acid 500 mg 09/07/23 09:00 09/09/23 10:11 Ascorbic Acid 500 Mg Tablet PO 500 mg DAILY [facility] Administration Aspirin 81 mg 09/06/23 14:00 09/09/23 10:12 Aspirin 81 Mg Enteric Tablet PO 8
[2023-09-09] MEDS: ENOXAPARIN 30 MG/0.3 ML SYRINGE SUB-Q (12:57)
[2023-09-09 17:52] LABS: Glucose Point of Care 146 mg/dl (65-105)
[2023-09-09 17:52] LABS: Glucose Point of Care 165 mg/dl (65-105)
[2023-09-09 21:30] LABS: Glucose Point of Care 176 mg/dl (65-105)
[2023-09-10] MEDS: LEVOTHYROXINE SODIUM 50 MCG TABLET PO (05:50)
[2023-09-10] MEDS: MEGESTROL ACETATE (*CHEMO) ORAL SUSP 40 MG/ML SYR 400 MG PO ×2 (05:50→16:45)
[2023-09-10 06:00] VITALS: BP 147/78; PULSE 79; RESP 16; TEMP 37.1; O2SAT 98
[2023-09-10 07:29] LABS: Hematocrit 29.8 % (37.0-47.0); Hemoglobin 9.8 g/dL (12.0-15.0); Mean Corpuscular HGB Conc 32.9 g/dl (32-36); Mean Corpuscular Hemoglobin 30.1 pg (26-34); Mean Corpuscular Volume 91.4 fl (80-100); Mean Platelet Volume 10.1 fl (7.4-10.4); Platelet Count Result 215 k/mm3 (150-375); Red Blood Count 3.26 M/mm3 (4.2-5.4); Red Cell Distribution Width 13.6 % (11.5-14.5); White Blood Count 6.2 K/mm3 (4.5-10.0)
[2023-09-10 07:37] LABS: Alanine Aminotransferase 24 U/L (6-35); Albumin Level 3.5 g/dL (3.5-5.1); Alkaline Phosphatase 70 U/L (38-126); Anion Gap 10 mmol/L (8-16); Aspartate Amino Transferase 24 U/L (14-36); Bilirubin,Total 0.5 mg/dL (0.2-1.3); Blood Urea Nitrogen 34 mg/dL (7-17); Calcium 9.7 mg/dL (8.4-10.2); Carbon Dioxide 19 mmol/L (22-30); Chloride 108 mmol/L (98-107); Estimated CRCL calculation 21 ml/min; Estimated Glomerular Filt Rate 33; Glucose 117 mg/dL (65-110); Sodium 137 mmol/L (137-145)
[2023-09-10 08:26] LABS: Glucose Point of Care 106 mg/dl (65-105)
[2023-09-10] MEDS: ATORVASTATIN 20 MG TABLET PO (08:46)
[2023-09-10] MEDS: allopurinoL 100 MG TABLET PO (08:46)
[2023-09-10] MEDS: ACETAMINOPHEN 325 MG TABLET 650 MG PO (08:46)
[2023-09-10] MEDS: hydrALAZINE 5 MG TABLET PO (08:46)
[2023-09-10] MEDS: ISOSORBIDE MONONITRATE 30 MG TAB.ER.24H PO (08:47)
[2023-09-10] MEDS: IRBESARTAN 150 MG TABLET 300 MG PO (08:47)
[2023-09-10] MEDS: ENOXAPARIN 30 MG/0.3 ML SYRINGE SUB-Q (08:47)
[2023-09-10] MEDS: THERAPEUTIC MULTIVITAMINS/MINERALS TAB (*BKC) 1 TABLET PO (08:47)
[2023-09-10] MEDS: DOCUSATE SODIUM 100 MG CAPSULE PO (08:47)
[2023-09-10] MEDS: VITAMIN B COMPLEX CAPSULE 1 CAP PO (08:47)
[2023-09-10] MEDS: SERTRALINE HCL 50 MG TABLET PO (08:47)
[2023-09-10] MEDS: ASCORBIC ACID 500 MG TABLET PO (08:47)
[2023-09-10] MEDS: amLODIPine BESYLATE 5 MG TABLET PO (08:47)
[2023-09-10] MEDS: ASPIRIN 81 MG ENTERIC TABLET PO (08:50)
[2023-09-10 12:07] LABS: Glucose Point of Care 164 mg/dl (65-105)
--- NOTE | 2023-09-10 13:01 | P.PNNP_ITS ---
Progress Note: A&P Assessment and Plan (1) TIMI (acute kidney injury): Code(s): N17.9 - Acute kidney failure, unspecified Status: Acute Assessment and Plan: * Acute kidney injury * evaluation to date: * renal ultrasound okay * CPK low * urine electrolytes non-prerenal * urine eosinophils negative * Most likely due to pre renal azotemia. * she received some IVFs and improve. * now fluids have been stopped. * Creatinine has fallen to current baseline. * check another one tomorrow. (2) Chronic kidney disease, stage IV (severe): Code(s): N18.4 - Chronic kidney disease, stage 4 (severe) Status: Chronic Assessment and Plan: * baseline creatinine runs ~ 1.7 - 1.9mg/dl from [facility] * presumably due to HTN, diabetes, vascular disease, and age * This varies with hydration status eating etc. (3) Hyperkalemia: Code(s): E87.5 - Hyperkalemia Status: Acute Assessment and Plan: * resolved * Potassium normal today (4) Altered mental status: Code(s): R41.82 - Altered mental status, unspecified Status: Acute Assessment and Plan: * Worsened between and Monday. * repeat head CT showed no acute issues. * Neurologist Dr Zhang saw. EEG noted. * Patient seems to doing pretty well with mentation today. (5) Hypertension: Code(s): I10 - Essential (primary) hypertension Status: Chronic Assessment and Plan: * appears difficult to control at baseline * Blood pressure is variable with systolic 120s to 160s. * variability may contribute to falls? * amlodipine and irbesartan are both long acting meds. hydralazine is shorter acting but ordered qid so will change to q6h. * She is on amlodipine 5, hydralazine 5mg 4 times a day, irbesartan 300, and hydralazine p.r.n., * Will increase her seen hydralazine a little since this is at such a small dose. (6) Type 2 diabetes mellitus: Code(s): E11.9 - Type 2 diabetes mellitus without complications Status: Chronic Assessment and Plan: * follow accu-cheks * glycemic control per hospitalits. Subjective Date/time seen: 09/10/23 13:01 Interval history: pt is in good spirits. lying in bed. Son in the room. we discussed the case. Exam Narrative: General: elderly female in NAD; more lethargic Heart: normal S1 and S2; no rub or gallop Lungs: clear Abdomen: soft, nontender, nondistended, positive bowel sounds Extremities: no edema Skin: no rash or sq nodules Objective Data Vital Signs Vital Signs: Vital Signs - 24 hr 09/09/23 14:00 09/09/23 22:00 09/09/23 20:00 Temperature 97.8 F 97.5 F L Pulse Rate 84 86 Respiratory Rate 18 18 Blood Pressure 158/79 H 123/54 L Pulse Oximetry 97 97 97 Oxygen Delivery Room Air 09/10/23 06:00 09/10/23 08:39 09/10/23 08:55 Temperature 98.7 F Pulse Rate 79 Respiratory Rate 16 Blood Pressure 147/78 H Pulse Oximetry 98 Oxygen Delivery Room Air Room Air 09/10/23 08:45 Temperature Pulse Rate Respiratory Rate Blood Pressure Pulse Oximetry Oxygen Delivery Room Air Intake/Output Intake/Output:
--- NOTE | 2023-09-10 13:01 | PM.PNNEP ---
Progress Note: A&P Assessment and Plan (1) TIMI (acute kidney injury): Code(s): N17.9 - Acute kidney failure, unspecified Status: Acute Assessment and Plan: Acute kidney injury evaluation to date: renal ultrasound okay CPK low urine electrolytes non-prerenal urine eosinophils negative Most likely due to pre renal azotemia. she received some IVFs and improve. now fluids have been stopped. Creatinine has fallen to current baseline. check another one tomorrow. (2) Chronic kidney disease, stage IV (severe): Code(s): N18.4 - Chronic kidney disease, stage 4 (severe) Status: Chronic Assessment and Plan: baseline creatinine runs ~ 1.7 - 1.9mg/dl from [facility] records presumably due to HTN, diabetes, vascular disease, and age This varies with hydration status eating etc. (3) Hyperkalemia: Code(s): E87.5 - Hyperkalemia Status: Acute Assessment and Plan: resolved Potassium normal today (4) Altered mental status: Code(s): R41.82 - Altered mental status, unspecified Status: Acute Assessment and Plan: Worsened between and Monday. repeat head CT showed no acute issues. Neurologist Dr Zhang saw. EEG noted. Patient seems to doing pretty well with mentation today. (5) Hypertension: Code(s): I10 - Essential (primary) hypertension Status: Chronic Assessment and Plan: appears difficult to control at baseline Blood pressure is variable with systolic 120s to 160s. variability may contribute to falls? amlodipine and irbesartan are both long acting meds. hydralazine is shorter acting but ordered qid so will change to q6h. She is on amlodipine 5, hydralazine 5mg 4 times a day, irbesartan 300, and hydralazine p.r.n., Will increase her seen hydralazine a little since this is at such a small dose. (6) Type 2 diabetes mellitus: Code(s): E11.9 - Type 2 diabetes mellitus without complications Status: Chronic Assessment and Plan: follow accu-cheks glycemic control per hospitalits. Subjective Date/time seen: 09/10/23 13:01 Interval history: pt is in good spirits. lying in bed. Son in the room. we discussed the case. Exam Narrative: General: elderly female in NAD; more lethargic Heart: normal S1 and S2; no rub or gallop Lungs: clear Abdomen: soft, nontender, nondistended, positive bowel sounds Extremities: no edema Skin: no rash or sq nodules Objective Data Vital Signs Vital Signs: Vital Signs - 24 hr 09/09/23 14:00 09/09/23 22:00 09/09/23 20:00 Temperature 97.8 F 97.5 F L Pulse Rate 84 86 Respiratory Rate 18 18 Blood Pressure 158/79 H 123/54 L Pulse Oximetry 97 97 97 Oxygen Delivery Room Air 09/10/23 06:00 09/10/23 08:39 09/10/23 08:55 Temperature 98.7 F Pulse Rate 79 Respiratory Rate 16 Blood Pressure 147/78 H Pulse Oximetry 98 Oxygen Delivery Room Air Room Air 09/10/23 08:45 Temperature Pulse Rate Respiratory Rate Blood Pressure Pulse Oximetry Oxygen Delivery Room Air Intake/Output Intake/Output: Intake & Output 09/07/23 09/08/23 09/09/23 09/10/23 23:59 23:59 23:59 23:59 Intake Total 1890 580 770 170 Output Total 2024 1450 700 Balance 1890 -1445 -680 -530 Meds/Results Medications: Active Medications Generic Name Dose Route Start Last Admin Trade Name Sanketq PRN Reason Stop Dose Admin Acetaminophen 650 mg 09/04/23 18:35 09/10/23 08:46 Acetaminophen 325 Mg Tablet PO 650 mg Q4H PRN Administration Mild Pain (1-3) or Fever Allopurinol 100 mg 09/09/23 09:00 09/10/23 08:46 Allopurinol 100 Mg Tablet PO 100 mg DAILY YOBANY Administration Amlodipine Besylate 5 mg 09/06/23 14:00 09/10/23 08:47 Amlodipine Besylate 5 Mg Tablet PO 5 mg DAILY YOBANY Administration Ascorbic Acid 500 mg 09/07/23 09:00 09/10/23 08:47 Ascorbic Acid 500 Mg Tablet
[2023-09-10 14:00] VITALS: BP 141/79; PULSE 83; RESP 16; TEMP 36.9; O2SAT 99
--- NOTE | 2023-09-10 16:01 | P.PNIM_ITS ---
Progress Note: A&P Assessment and Plan (1) Acute on chronic kidney failure: Code(s): N17.9 - Acute kidney failure, unspecified; N18.9 - Chronic kidney disease, unspecified Status: Acute Assessment and Plan: 09/05/23:(copied from chart) * Creatinine was 1.80 will less than a month ago, 2.30 on admission and now 1.7 * waiting on faxed labs from [facility] to determine her baseline kidney function * BUN, EGFR improving on fluids but still at 41, 30 respectively * hydralazine ordered to help keep her blood pressure under control * Renal US shows no abnormalities * Hold nephrotoxic agents including ibuprofen and Irbesartan * Nephrology consulted 09/06/23: * BUN 34, creatinine 1.4, EGFR 35, creatinine clearance 21, potassium 3.9, sodium level 136 * Nephrology consulted and following * Renal ultrasound showing normal kidney size, no hydronephrosis * Continue amlodipine 5 mg and Imdur 30 mg for blood pressure control * Will continue to hold irbesartan and allopurinol 09/07/23: * BUN 35, creatinine 1.5, potassium 3.8, sodium 136, eGFR 33, creatinine clearance 21 * Nephrology feels that the dehydration coupled with her use of an Arb for blood pressure control has contributed to her acute kidney injury. Her baseline creatinine ranges between 1.8-1.9. * We will go ahead and restart her Avapro now that her creatinine is below her baseline and see how she does today * Encouraged patient to increase her intake of oral food and fluids * Will continue to hold her allopurinol for now * Nephrology following 09/08/23: * For BUN 30, creatinine 1.3, potassium 4.0, sodium 136, bicarb 18 * Nephrology following * I restarted her Avapro and her allopurinol 09/09/23: * BUN 27, Creatinine 1.40, potassium 4.1, Na= 135, Bicarb 18 * Nephrology following * No change to current treatment plan 09/10/23: * BUN 34, creatinine 1.50, potassium 4.0, sodium 137 * No change to current treatment plan (2) Alteration in neurological status: Code(s): R29.90 - Unspecified symptoms and signs involving the nervous system Status: Acute Assessment and Plan: 09/05/23:(copied from chart) * Could be due to worsening kidney function * Not at patient baseline per family * CT scan of brain W/O contrast ordered, recent fall with bruising evidence * EEG ordered to rule out subclinical seizures * May consult neurology if appropriate 09/06/23: * EEG results pending * CT of the brain without contrast negative for any acute changes, showed age- related changes only * Patient is alert and oriented x3 today, interactive, following commands, EOMs intact, PERRLA, strength 5/5 in all 4 extremities, cranial nerves intact, denies any decreased sensation. * Kidney function improved today BUN 34, creatinine 1.40, estimated GFR 35, potassium 3.9, sodium 136 * Continue to monitor daily labs 09/07/23: * EEG results are still pending * Patient does not have any neuro deficits on exam * Will continue to monitor neuro status 09/08/23: * EEG showing abnormal record due to the presence of thigh hemispheric slow activity without any evidence of paroxysmal activity, this abnormality suggestive of organic her metabolic encephalopathy or postictal state, there is no evidence of any seizure-like discharges throughout the tracing * Patient awakes to voice but then falls right back to sleep, she is not following commands today or holding a conversation which is a change from yesterday. I do not see any facial droop and her pupils are round and reactiv e to light. Nursing states that she has been like this the entire morning and
[2023-09-10] MEDS: hydrALAZINE 10 MG TABLET PO ×3 (16:45→23:10)
[2023-09-10 17:26] LABS: Glucose Point of Care 167 mg/dl (65-105)
[2023-09-10 20:00] VITALS: O2SAT 99
[2023-09-10 21:00] LABS: Glucose Point of Care 192 mg/dl (65-105)
[2023-09-10 22:00] VITALS: BP 166/79; PULSE 79; RESP 16; TEMP 36.3; O2SAT 100
--- NOTE | 2023-09-11 | ECHO_ITS ---
Patient Info Name: Callie Peñaloza Age: 88 years : 1935 Gender: Female Ht: 65 in Wt: 118 lbs BSA: 1.56 m2 HR: 78 bpm BP: 148 / 72 mmHg Heart Rhythm: Sinus Rhythm Technical Quality: Fair Exam Date: 09/11/2023 2:47 PM Exam Location: Echo Lab Exam Room: 306 Patient Status: Inpatient Admit Date: 09/05/2023 Staff Ordering Physician: Edel Casper APRN Service Shop Foreman: Deirdre Trinh RDCS Attending Provider: Shahab Anderson MD Referring Physician: Tremayne PEÑA; Exam Type: CA echo doppler color flow Study Info Indications - syncope Complete two-dimensional, color flow and Doppler transthoracic echocardiogram is performed. Summary 1. Complete two-dimensional, color flow and Doppler transthoracic echocardiogram is performed. 2. Technically somewhat challenging echocardiogram. 3. Normal left ventricular size thickness and systolic function. 4. No valvular dysfunction. Left Ventricular Outflow Tract Name Value Normal LVOT 2D LVOT Diameter 2.0 cm LVOT Doppler LVOT Peak Gradient 5 mmHg LVOT Mean Gradient 3 mmHg LVOT VTI 19 cm LVOT VTI/AV VTI Ratio 1.0 LVOT Stroke Volume 57 ml LVOT CO 14.8 l/min LVOT CI 9.5 l/min/m2 Pulmonic Valve Name Value Normal RVOT Doppler RVOT Peak Gradient 2 mmHg PV Doppler PV Peak Gradient 4 mmHg Mitral Valve Name Value Normal MV Doppler MV Decel [place]ell 250 cm/s2 MV PHT 71 ms MV Area (PHT) 3.1 cm2 4.0-5.0 MV Diastolic Function MV E Peak Velocity 62 cm/s MV A Peak Velocity 119 cm/s MV E/A 0.5 MV Decel Time 246 ms Tricuspid Valve Name Value Normal TV Regurgitation Doppler TR Peak Velocity 211 cm/s TR Peak Gradient 18 mmHg Estimated PAP/RSVP RA Pressure 10 mmHg <=5 PA Systolic P
[2023-09-11 05:33] VITALS: BP 184/83; PULSE 78; RESP 18; TEMP 36.1; O2SAT 98
[2023-09-11] MEDS: hydrALAZINE 10 MG TABLET PO ×4 (05:42→23:02)
[2023-09-11] MEDS: LEVOTHYROXINE SODIUM 50 MCG TABLET PO (05:42)
[2023-09-11] MEDS: MEGESTROL ACETATE (*CHEMO) ORAL SUSP 40 MG/ML SYR 400 MG PO ×2 (05:42→12:21)
[2023-09-11 07:17] LABS: Hematocrit 31.9 % (37.0-47.0); Hemoglobin 10.3 g/dL (12.0-15.0); Mean Corpuscular HGB Conc 32.3 g/dl (32-36); Mean Corpuscular Hemoglobin 29.9 pg (26-34); Mean Corpuscular Volume 92.5 fl (80-100); Mean Platelet Volume 9.7 fl (7.4-10.4); Platelet Count Result 246 k/mm3 (150-375); Red Blood Count 3.45 M/mm3 (4.2-5.4); Red Cell Distribution Width 13.7 % (11.5-14.5); White Blood Count 7.2 K/mm3 (4.5-10.0)
[2023-09-11 07:29] LABS: Glucose Point of Care 121 mg/dl (65-105)
[2023-09-11 07:35] LABS: Albumin Level 3.9 g/dL (3.5-5.1); Anion Gap 10 mmol/L (8-16); Blood Urea Nitrogen 32 mg/dL (7-17); Calcium 10.1 mg/dL (8.4-10.2); Carbon Dioxide 20 mmol/L (22-30); Chloride 107 mmol/L (98-107); Estimated CRCL calculation 23 ml/min; Estimated Glomerular Filt Rate 39; Glucose 118 mg/dL (65-110); Phosphorus 2.9 mg/dL (2.5-4.5); Potassium 4.2 mmol/L (3.4-5.0); Sodium 137 mmol/L (137-145)
--- NOTE | 2023-09-11 08:13 | PM.DS ---
DS: Admitting Diagnosis Discharge Date 09/11/23 Admitting Diagnosis Acute on chronic kidney failure Hyperkalemia Hypercalcemia Hypothyroidism Type 2 diabetes mellitus DS: Summary Hospital Course Reason for hospitalization: Acute on chronic kidney failure Hyperkalemia Hypercalcemia Hospital Course: This is an 88 year old female who presented the the emergency room on 09/04/23 with On examination today patientLabs today reveal Status at Discharge Cognitive/behavioral status at discharge: Alert and oriented x 2 Functional status at discharge: uses cane/walker Overall status at discharge: patient is progressing back to baseline Time Spent with Patient Time attestation: Total time spent providing and/or coordinating discharge services: Time spent: Greater than 30 minutes Exam Narrative: General: In no acute distress, well nourished Head: atraumatic, no encephalopathy Eyes: EOMI, PERRLA, slcera clear ENT: moist mucous membranes, nasal passages clear Neck: supple, no JVD, no adenopathy, trachea midline Cardiac: Normal S1 and S2. No murmur, gallops or friction rubs, peripheral pulses intact. Respiratory: Lungs clear to auscultation, no adventitious lung sounds Gastrointestinal: soft, non-distended, non-tender, normoactive bowel sounds. : voiding without difficulty. Extremities: moves all extremities well, no edema, good ROM, strength 5/5 Skin: clean, dry, intact. No wounds or lesions. Neuro: Alert and oriented x4, cranial nerves intact, no neuro deficits. Psych: normal mood, normal affect, interactive DS: Data Data Completed and Pending Completed studies during hospitalization: Renal US Head CT x2 Pending studies at discharge: None Labs on day of discharge: Labs from last 24 hours 09/11/23 09/11/23 09/10/23 07:21 06:44 19:28 WBC 7.2 RBC 3.45 L Hgb 10.3 L Hct 31.9 L MCV 92.5 MCH 29.9 MCHC 32.3 RDW 13.7 Plt Count 246 MPV 9.7 Sodium 137 Potassium 4.2 Chloride 107 Carbon Dioxide 20 L Anion Gap 10 BUN 32 H Creatinine 1.30 H Estim Creat Clear Calc 23 Estimated GFR 39 L Glucose 118 H POC Capillary Glucose 121 H 192 H Calcium 10.1 Phosphorus 2.9 Albumin 3.9 09/10/23 09/10/23 09/10/23 17:16 12:03 07:50 WBC RBC Hgb Hct MCV MCH MCHC RDW Plt Count MPV Sodium Potassium Chloride Carbon Dioxide Anion Gap BUN Creatinine Estim Creat Clear Calc Estimated GFR Glucose POC Capillary Glucose 167 H 164 H 106 H Calcium Phosphorus Albumin Discharge Plan Discharge Attending physician on discharge: Cortney Hay Consulting providers: Sarah Lopez; Shyanne Velarde Discharging Clinician: Edel Casper Anticipated Discharge Date/Time: 09/11/23 08:10 Patient Disposition: NH Detention/Asst Living Activity: as tolerated Diet: as tolerated Patient Instructions: Failure to Thrive in Older Adults (DC) Patient Language: Turkish Stand Alone Forms: General Discharge Information, Halfway Discharge Follow-up/Referrals: UNKNOWN,DOCTOR [Primary Care Provider] - 1 Week Discharge Medications: Continued metformin 500 mg Tablet 500 mg PO BID atorvastatin 20 mg Tablet 20 mg PO DAILY isosorbide mononitrate 30 mg Tablet Extended Release 24 Hr 30 mg PO DAILY amlodipine 5 mg Tablet 5 mg PO DAILY aspirin [Aspir-81] 81 mg Tablet,Delayed Release (Dr/Ec) 81 mg PO DAILY levothyroxine [Levoxyl] 50 mcg Tablet 50 mcg PO DAILY vitamin B complex [B Complex-Vitamin B12] Tablet 1 tablet PO DAILY sertraline 50 mg Tablet 50 mg PO DAILY irbesartan [Avapro] 300 mg Tablet 300 mg PO DAILY Daily Multivitamin 200-100-500 mcg Capsule 1 cap PO DAILY Calcium 500 + D 1 tablet DAILY alendronate 70 mg tablet 70 mg PO WEEKLY biotin 5,000 mcg
[2023-09-11 08:32] VITALS: PULSE 82; O2SAT 97
[2023-09-11] MEDS: ASPIRIN 81 MG ENTERIC TABLET PO (09:25)
[2023-09-11] MEDS: amLODIPine BESYLATE 5 MG TABLET PO (09:25)
[2023-09-11] MEDS: allopurinoL 100 MG TABLET PO (09:25)
[2023-09-11] MEDS: ATORVASTATIN 20 MG TABLET PO (09:25)
[2023-09-11] MEDS: IRBESARTAN 150 MG TABLET 300 MG PO (09:25)
[2023-09-11] MEDS: THERAPEUTIC MULTIVITAMINS/MINERALS TAB (*BKC) 1 TABLET PO (09:25)
[2023-09-11] MEDS: ENOXAPARIN 30 MG/0.3 ML SYRINGE SUB-Q (09:25)
[2023-09-11] MEDS: ISOSORBIDE MONONITRATE 30 MG TAB.ER.24H PO (09:25)
[2023-09-11] MEDS: ASCORBIC ACID 500 MG TABLET PO (09:25)
[2023-09-11] MEDS: SERTRALINE HCL 50 MG TABLET PO (09:26)
[2023-09-11] MEDS: VITAMIN B COMPLEX CAPSULE 1 CAP PO (09:27)
[2023-09-11 10:05] LABS: Glucose Point of Care 176 mg/dl (65-105)
[2023-09-11] MEDS: ONDANSETRON HCL ODT 4 MG TABLET PO (10:07)
[2023-09-11 10:12] VITALS: BP 159/91; PULSE 80; O2SAT 99
--- NOTE | 2023-09-11 10:27 | PM.PNNEP ---
Progress Note: A&P Assessment and Plan (1) TIMI (acute kidney injury): Code(s): N17.9 - Acute kidney failure, unspecified Status: Acute Assessment and Plan: resolved evaluation to date: renal ultrasound okay CPK low urine electrolytes non-prerenal urine eosinophils negative most likely due to pre renal azotemia she received some IVFs and improved continue supportive therapy (2) Chronic kidney disease, stage IV (severe): Code(s): N18.4 - Chronic kidney disease, stage 4 (severe) Status: Chronic Assessment and Plan: baseline creatinine runs ~ 1.7 - 1.9mg/dl from [facility] records presumably due to HTN, diabetes, vascular disease, and age this varies with hydration status, eating, oral intake...etc. (3) Hyperkalemia: Code(s): E87.5 - Hyperkalemia Status: Acute Assessment and Plan: resolved potassium has normalized (4) Altered mental status: Code(s): R41.82 - Altered mental status, unspecified Status: Acute Assessment and Plan: seems to fluctuate in general repeat head CT showed no acute issues Neurology recommendations noted -- last EEG reviewed continue supportive therapy (5) Hypertension: Code(s): I10 - Essential (primary) hypertension Status: Chronic Assessment and Plan: appears difficult to control at baseline Blood pressure is variable with systolic 120s to 160s. variability may contribute to falls? She is on amlodipine 5, hydralazine 10mg 4 times a day, and irbesartan 300 (6) Type 2 diabetes mellitus: Code(s): E11.9 - Type 2 diabetes mellitus without complications Status: Chronic Assessment and Plan: follow accu-cheks glycemic control per hospitalits. Not much else to add -- will continue to follow intermittently. Subjective Date/time seen: 09/11/23 10:27 Interval history: Follow-up for acute kidney injury/acute renal failure on chronic kidney disease. Mentation seems about the same when I last saw her (fluctuates between A&O x 2 - 3) and renal function seems relatively stable as well; vasovagal episoded earlier today as noted by nursing; no apparent distress noted; no other acute events overnight or earlier this AM. Exam Narrative: General: elderly female in NAD Heart: normal S1 and S2; no rub or gallop Lungs: clear anteriorly Abdomen: soft, nontender, nondistended, positive bowel sounds Extremities: no edema Skin: warm and dry Objective Data Vital Signs Vital Signs: Vital Signs Temp Pulse Resp BP Pulse Ox O2 Del Method 09/11/23 10:00 98.0 F 70 18 148/72 H 100 09/11/23 08:00 Room Air 09/11/23 10:12 80 159/91 H 99 Room Air 09/11/23 08:32 82 97 Room Air 09/11/23 05:33 96.9 F L 78 18 184/83 H 98 09/10/23 22:00 97.4 F L 79 16 166/79 H 100 09/10/23 20:00 99 Room Air Intake/Output Intake/Output: Intake & Output 09/08/23 09/09/23 09/10/23 09/11/23 23:59 23:59 23:59 23:59 Intake Total 580 770 650 410 Output Total 2024 1450 1250 2024 [facility]4034 -070 -600 -2057 Meds/Results Medications: Active Medications Generic Name Dose Route Start Last Admin Trade Name Devyn PRN Reason Stop Dose Admin Acetaminophen 650 mg 09/04/23 18:35 09/11/23 12:21 Acetaminophen 325 Mg Tablet PO 650 mg Q4H PRN Administration Mild Pain (1-3) or Fever Allopurinol 100 mg 09/09/23 09:00 09/11/23 09:25 Allopurinol 100 Mg Tablet PO 100 mg DAILY YOBANY Administration Amlodipine Besylate 5 mg 09/06/23 14:00 09/11/23 09:25 Amlodipine Besylate 5 Mg Tablet PO 5 mg DAILY YOBANY Administration Ascorbic Acid 500 mg 09/07/23 09:00 09/11/23 09:25 Ascorbic Acid 500 Mg Tablet PO 500 mg DAILY YOBANY Administration Aspirin 81 mg 09/06/23 14:00 09/11/23 09:25 Aspirin 81 Mg Enteric Tablet PO 81 mg DAILY YOBANY Administration Atorvastatin Calcium 20 mg
--- NOTE | 2023-09-11 10:27 | P.PNNP_ITS ---
Progress Note: A&P Assessment and Plan (1) TIMI (acute kidney injury): Code(s): N17.9 - Acute kidney failure, unspecified Status: Acute Assessment and Plan: * resolved * evaluation to date: * renal ultrasound okay * CPK low * urine electrolytes non-prerenal * urine eosinophils negative * most likely due to pre renal azotemia * she received some IVFs and improved * continue supportive therapy (2) Chronic kidney disease, stage IV (severe): Code(s): N18.4 - Chronic kidney disease, stage 4 (severe) Status: Chronic Assessment and Plan: * baseline creatinine runs ~ 1.7 - 1.9mg/dl from [facility] records * presumably due to HTN, diabetes, vascular disease, and age * this varies with hydration status, eating, oral intake...etc. (3) Hyperkalemia: Code(s): E87.5 - Hyperkalemia Status: Acute Assessment and Plan: * resolved * potassium has normalized (4) Altered mental status: Code(s): R41.82 - Altered mental status, unspecified Status: Acute Assessment and Plan: * seems to fluctuate in general * repeat head CT showed no acute issues * Neurology recommendations noted -- last EEG reviewed * continue supportive therapy (5) Hypertension: Code(s): I10 - Essential (primary) hypertension Status: Chronic Assessment and Plan: * appears difficult to control at baseline * Blood pressure is variable with systolic 120s to 160s. * variability may contribute to falls? * She is on amlodipine 5, hydralazine 10mg 4 times a day, and irbesartan 300 (6) Type 2 diabetes mellitus: Code(s): E11.9 - Type 2 diabetes mellitus without complications Status: Chronic Assessment and Plan: * follow accu-cheks * glycemic control per hospitalits. Not much else to add -- will continue to follow intermittently. Subjective Date/time seen: 09/11/23 10:27 Interval history: Follow-up for acute kidney injury/acute renal failure on chronic kidney disease. Mentation seems about the same when I last saw her (fluctuates between A&O x 2 - 3) and renal function seems relatively stable as well; vasovagal episoded earlier today as noted by nursing; no apparent distress noted; no other acute events overnight or earlier this AM. Exam Narrative: General: elderly female in NAD Heart: normal S1 and S2; no rub or gallop Lungs: clear anteriorly Abdomen: soft, nontender, nondistended, positive bowel sounds Extremities: no edema Skin: warm and dry Objective Data Vital Signs Vital Signs: Vital Signs Temp Pulse Resp BP Pulse Ox O2 Del Method 09/11/23 10:00 98.0 F 70 18 148/72 H 100 09/11/23 08:00 Room Air 09/11/23 10:12 80 159/91 H 99 Room Air 09/11/23 08:32 82 97 Room Air 09/11/23 05:33 96.9 F L 78 18 184/83 H 98 09/10/23 22:00 97.4 F L 79 16 166/79 H 100 09/10/23 20:00 99 Room Air Intake/Output Intake/Output: Intake & Output 09/08/23 09/09/23 09/10/23 09/11/23 23:59 23:59 23:59 23:59 Intake Total 580 770 650 410 Output Total 2024 1450 1250 2024 [facility]7850 -680 -600 -1615 Meds/Results Medications: Active Medications Generic N
[2023-09-11 11:35] LABS: Glucose Point of Care 192 mg/dl (65-105)
[2023-09-11] MEDS: DOCUSATE SODIUM 100 MG CAPSULE PO (12:21)
[2023-09-11] MEDS: ACETAMINOPHEN 325 MG TABLET 650 MG PO (12:21)
--- NOTE | 2023-09-11 13:29 | PM.IMPN ---
Progress Note: A&P Assessment and Plan (1) Acute on chronic kidney failure: Code(s): N17.9 - Acute kidney failure, unspecified; N18.9 - Chronic kidney disease, unspecified Status: Acute Assessment and Plan: 09/05/23:(copied from chart) Creatinine was 1.80 will less than a month ago, 2.30 on admission and now 1.7 waiting on faxed labs from [facility] to determine her baseline kidney function BUN, EGFR improving on fluids but still at 41, 30 respectively hydralazine ordered to help keep her blood pressure under control Renal US shows no abnormalities Hold nephrotoxic agents including ibuprofen and Irbesartan Nephrology consulted 09/06/23: BUN 34, creatinine 1.4, EGFR 35, creatinine clearance 21, potassium 3.9, sodium level 136 Nephrology consulted and following Renal ultrasound showing normal kidney size, no hydronephrosis Continue amlodipine 5 mg and Imdur 30 mg for blood pressure control Will continue to hold irbesartan and allopurinol 09/07/23: BUN 35, creatinine 1.5, potassium 3.8, sodium 136, eGFR 33, creatinine clearance 21 Nephrology feels that the dehydration coupled with her use of an Arb for blood pressure control has contributed to her acute kidney injury. Her baseline creatinine ranges between 1.8-1.9. We will go ahead and restart her Avapro now that her creatinine is below her baseline and see how she does today Encouraged patient to increase her intake of oral food and fluids Will continue to hold her allopurinol for now Nephrology following 09/08/23: For BUN 30, creatinine 1.3, potassium 4.0, sodium 136, bicarb 18 Nephrology following I restarted her Avapro and her allopurinol 09/09/23: BUN 27, Creatinine 1.40, potassium 4.1, Na= 135, Bicarb 18 Nephrology following No change to current treatment plan 09/10/23: BUN 34, creatinine 1.50, potassium 4.0, sodium 137 No change to current treatment plan 09/11/23: BUN 32, creatinine 1.3, potassium 4.2 No change to current treatment plan (2) Alteration in neurological status: Code(s): R29.90 - Unspecified symptoms and signs involving the nervous system Status: Acute Assessment and Plan: 11/14/23:(copied from chart) Could be due to worsening kidney function Not at patient baseline per family CT scan of brain W/O contrast ordered, recent fall with bruising evidence EEG ordered to rule out subclinical seizures May consult neurology if appropriate 09/06/23: EEG results pending CT of the brain without contrast negative for any acute changes, showed age-related changes only Patient is alert and oriented x3 today, interactive, following commands, EOMs intact, PERRLA, strength 5/5 in all 4 extremities, cranial nerves intact, denies any decreased sensation. Kidney function improved today BUN 34, creatinine 1.40, estimated GFR 35, potassium 3.9, sodium 136 Continue to monitor daily labs 09/07/23: EEG results are still pending Patient does not have any neuro deficits on exam Will continue to monitor neuro status 09/08/23: EEG showing abnormal record due to the presence of thigh hemispheric slow activity without any evidence of paroxysmal activity, this abnormality suggestive of organic her metabolic encephalopathy or postictal state, there is no evidence of any seizure-like discharges throughout the tracing Patient awakes to voice but then falls right back to sleep, she is not following commands today or holding a conversation which is a change from yesterday. I do not see any facial droop and her pupils are round and reactive to light. Nursing states that she has been like this the entire morning and only perked up when her son was he in the room. We will go ahead and repeat her CT scan of her head today Neurology consulted for further assistance, will appreciate their input. Continue to monitor neuro status 09/09/23: Neurology consulted Repeat CT of head negative for any acute intracrainal process
[2023-09-11 14:00] VITALS: BP 148/72; PULSE 70; RESP 18; TEMP 36.7; O2SAT 100
[2023-09-11 17:34] LABS: Glucose Point of Care 111 mg/dl (65-105)
--- NOTE | 2023-09-11 18:44 | PC.NURSE ---
nurse administered fleets enema at 1840 with help from LAYOUT WORKER. pt had one small immediate bowel movement. nurse administered the rest of the enema. pt instructed to call if she feels she needs to have another bowel movement. pt laying on side and states she is comfortable. call light within reach
--- NOTE | 2023-09-11 18:48 | PC.NURSE ---
approx 0950 this am SPOON MAKER used [facility] to contact this nurse stating she needs help with this pt. this nurse immediately comes into room and sees pt on the bedside commode being held up by leaning on the SPOON MAKER. this nurse assesses pt and found to be unresponsive with eyes open and blinking. this nurse sternal rubs pt and pt has not came to fully after sternal rub. this nurse calls a rapid response. Physical Therapist was nearby and was in room immediatley after hearing rapid to help get pt back to bed. vitals were taken and also a blood sugar. pt vitals and glucose was stable. once pt in bed pt came to shortly after and immediately vomited. pt has no iv access so was given zofran sublingual. pt states she felt better and wanted to rest. no further such episodes happened today with this pt. pt under close monitoring.
[2023-09-11 20:37] LABS: Glucose Point of Care 188 mg/dl (65-105)
[2023-09-11 20:49] VITALS: BP 139/64; PULSE 77; RESP 16; TEMP 37.2; O2SAT 98
[2023-09-12 04:18] VITALS: BP 195/80; PULSE 73; RESP 16; TEMP 37.3; O2SAT 100
[2023-09-12] MEDS: hydrALAZINE HCL 20 MG/ML VIAL 10 MG IV PUSH (04:50)
[2023-09-12 05:22] VITALS: BP 157/65
[2023-09-12] MEDS: LEVOTHYROXINE SODIUM 50 MCG TABLET PO (05:50)
[2023-09-12] MEDS: MEGESTROL ACETATE (*CHEMO) ORAL SUSP 40 MG/ML SYR 400 MG PO (05:50)
[2023-09-12] MEDS: hydrALAZINE 10 MG TABLET PO ×2 (05:50→12:35)
[2023-09-12 07:30] LABS: Glucose Point of Care 108 mg/dl (65-105)
[2023-09-12] MEDS: IRBESARTAN 150 MG TABLET 300 MG PO (09:14)
[2023-09-12] MEDS: THERAPEUTIC MULTIVITAMINS/MINERALS TAB (*BKC) 1 TABLET PO (09:15)
[2023-09-12] MEDS: ISOSORBIDE MONONITRATE 30 MG TAB.ER.24H PO (09:15)
[2023-09-12] MEDS: ASPIRIN 81 MG ENTERIC TABLET PO (09:15)
[2023-09-12] MEDS: ASCORBIC ACID 500 MG TABLET PO (09:15)
[2023-09-12] MEDS: amLODIPine BESYLATE 5 MG TABLET PO (09:15)
[2023-09-12] MEDS: SERTRALINE HCL 50 MG TABLET PO (09:15)
[2023-09-12] MEDS: VITAMIN B COMPLEX CAPSULE 1 CAP PO (09:15)
[2023-09-12] MEDS: allopurinoL 100 MG TABLET PO (09:15)
[2023-09-12] MEDS: ENOXAPARIN 30 MG/0.3 ML SYRINGE SUB-Q (09:15)
[2023-09-12] MEDS: ATORVASTATIN 20 MG TABLET PO (09:19)
[2023-09-12] MEDS: DOCUSATE SODIUM 100 MG CAPSULE PO (09:23)
--- NOTE | 2023-09-12 09:54 | PM.DS ---
DS: Admitting Diagnosis Discharge Date 09/12/23 Admitting Diagnosis Acute on chronic kidney failure hyperkalemia hyercalcemia hypothyroidism type 2 DM DS: Discharge Diagnosis Discharge Diagnosis (1) Acute on chronic kidney failure: Code(s): N17.9 - Acute kidney failure, unspecified; N18.9 - Chronic kidney disease, unspecified Status: Acute (2) Alteration in neurological status: Code(s): R29.90 - Unspecified symptoms and signs involving the nervous system Status: Acute (3) Hypothyroidism: Code(s): E03.9 - Hypothyroidism, unspecified Status: Chronic (4) Type 2 diabetes mellitus: Code(s): E11.9 - Type 2 diabetes mellitus without complications Status: Chronic DS: Summary Hospital Course Reason for hospitalization: Acute on chronic kidney failure AMS Hospital Course: This is an 88 year old female who presented to the hospital on 09/04/23 with complaints of abnormal labs with worsening renal function and AMS. Work up in the hospital included CT of the head x2 which revealed no acute findings, renal ultrasound which shown normal kidney sizes, no hydronephrosis, Echo which revealed normal LV and RV function, EEG which revealed?abnormal record due to the presence of bihemispheric slow activity without any evidence of paroxysmal activity.? This abnormality suggestive of organic or metabolic encephalopathy or postictal state.? Clinical correlation recommended.? There is no evidence of any seizure-like discharges throughout the tracing. Patient had 3 episodes of vasovagal response when getting up out of the bed to the commode. Orthostatic blood pressures were done and shown 150/78 with map 102 when lying down, 130/72 with map of 91 when sitting up, and 92/64 with map of 73 when standing. Neurology was consulted, however there was no coverage here for the length of her hospital stay. Nephrology was also consulted for her TIMI which has resolved with last BUN 32, creatinine 1.30. I spoke with patient's PCP Dr. Salgado on numerous occasions and kept him informed of everything we did here. Family is wanting her to go home today and spend the holiday out of the hospital. They are planning to set up hospice for her once she is back to her facility. Family is wanting to just keep her as comfortable as possible. This is reasonable given her age and multiple hospitalizations. VSS, she is afebrile, and remains on room air. She denies any pain or discomfort at this time. She denies any fever, chills, headache, shortness of breath, chest pain, lightheadedness, dizziness, vision changes, abdominal pain, nausea, vomiting or diarrhea. She is stable for discharge back to her facility today. She will follow up with PCP in 1 week. Status at Discharge Cognitive/behavioral status at discharge: Alert and oriented x2 Functional status at discharge: uses cane/walker Overall status at discharge: patient is progressing back to baseline Time Spent with Patient Time attestation: Total time spent providing and/or coordinating discharge services: Time spent: Greater than 30 minutes Exam Narrative: General: In no acute distress, well nourished Head: atraumatic, no encephalopathy Eyes: EOMI, PERRLA, sclera clear ENT: moist mucous membranes, nasal passages clear Neck: supple, no JVD, no adenopathy, trachea midline Cardiac: Normal S1 and S2. No murmur, gallops or friction rubs, peripheral pulses intact. Respiratory: Lungs clear to auscultation, no adventitious lung sounds Gastrointestinal: soft, non-distended, non-tender, normoactive bowel sounds. : voiding without difficulty. Extremities: moves all extremities well, no edema, generalized weakness Skin: clean, dry, intact. No wounds or lesions. Neuro: Alert and oriented x2, cranial nerves intact, no neuro deficits. Psych: normal mood, normal affect, interactive Const: General: No confusion Orientation/consciousness: No confusion Neuro: General: No confusion Speech:
[2023-09-12 11:23] LABS: Glucose Point of Care 193 mg/dl (65-105)
--- NOTE | 2023-09-12 11:27 | PCNWS ---
Weekly nutritional screen. Patient is tolerating current heart healthy diet with adequate intake at 50-75%. Adding Ensure compact BID for supplement. Noted potential discharge today. No weight loss reported. No further nutritional recommendations at this time.
[2023-09-12 11:31] VITALS: BP 130/72; BP 150/78; BP 92/64; PULSE 86; RESP 14; TEMP 36.3; O2SAT 100
[2023-09-12 14:00] VITALS: BP 107/58; PULSE 86; RESP 17; TEMP 36.4; O2SAT 91
[2023-09-12 14:12] VITALS: O2SAT 100
[2023-09-12 16:25] LABS: Glucose Point of Care 138 mg/dl (65-105)
== END 2023-09-12 19:00 | DRG 684 ==
LOC: ANHED 18:43 → ANH3MEDSUR 19:38
PROVIDERS: Internal Medicine Nephrology; Nurse Practitioner; Physician Assistant; Admitting Provider Internal Medicine; Emergency Provider Emergency Medicine; Visit Provider Nurse Practitioner Acute Care
DX: N17.9 Acute kidney failure, unspecified (principal); E87.5 Hyperkalemia; E11.22 Type 2 diabetes mellitus with diabetic chronic kidney disease; E03.9 Hypothyroidism, unspecified; E78.00 Pure hypercholesterolemia, unspecified; E83.52 Hypercalcemia; F03.90 Unspecified dementia, unspecified severity, without behavioral disturbance, psychotic disturbance, mood disturbance, and anxiety; F32.A Depression, unspecified; I25.10 Atherosclerotic heart disease of native coronary artery without angina pectoris; I12.9 Hypertensive chronic kidney disease with stage 1 through stage 4 chronic kidney disease, or unspecified chronic kidney disease; N18.4 Chronic kidney disease, stage 4 (severe); R55 Syncope and collapse; Z66 Do not resuscitate; Z79.82 Long term (current) use of aspirin; Z79.84 Long term (current) use of oral hypoglycemic drugs; Z90.710 Acquired absence of both cervix and uterus; Z95.1 Presence of aortocoronary bypass graft; Z20.822 Contact with and (suspected) exposure to COVID-19
CPT/HCPCS: 36415; 36600; 70450; 76775; 80048; 80053; 80069; 81003; 81050; 82550; 82570; 82805; 82948; 83036; 83735; 84100; 84156; 84300; 84439; 84443; 84480; 84540; 85025; 85027; 85999; 86140; 87636; 93005; 93306; 95816; 96361; 96374; 96375; 96376; 97161; 97165; 99285; A9270; G0378; J0360; J1650; J1815; J7030